=== PATIENT | male | born 1930 | race Caucasian/White ===

== ENCOUNTER → 2017-04-22 | Outpatient (CLI) | payer BC ==
[2016-05-04 13:00] VITALS: BP 60/61
[~2017-04-22] MED LIST: ASPI-482 PO; HYDR25TA9 PO; INSU100C SQ; INSU100C4 SQ; INSU100I17 SQ; INSU100I27 SQ; INSU100V13 SQ; LOSA25TA4 PO; LOVA40TA2 PO; METF500T4 PO; MULT1TAB52 PO; TRAM50TA PO
--- NOTE | 2017-04-22 13:28 | RAD ---
Indication fall 3 days previously. Head and neck injury. Pain. Noncontrast images of the head were obtained. The cervical spine was also evaluated. Images of the cervical spine were reformatted in the coronal and sagittal planes. Note is made of a similar examinations one year ago. CT head: Findings The calvarium appears unremarkable and the visualized paranasal sinuses appear normal. Ventricles and sulci within normal limits given the patient's age. There is no subdural or epidural hematoma. There is no mass or midline shift. No hemorrhage is seen. An acute intracranial finding is not apparent. CT cervical spine: Findings The lung apices are clear. The thyroid has a somewhat inhomogeneous appearance. This is likely incidental. If additional evaluation of the thyroid is warranted ultrasound could be performed. A definite significant soft tissue finding in the neck is not seen. Best demonstrated on the coronal and sagittal images is a fracture of the odontoid,, type II. The dens is displaced posteriorly relative to the remainder of the body of C2. No additional acute finding is seen involving the cervical spine. Spondylitic changes are seen. This is manifested as disc space narrowing at C3-4 and C4-5. Preliminary critical results were communicated to Ida, in the office of Dr. Padgett, at 1325 on 04/22/2017 IMPRESSION: Type II fracture of the dens. No acute finding seen in the head PQRS Compliance Statement: One or more of the following individualized dose reduction techniques were utilized for this examination: 1. Automated exposure control 2. Adjustment of the mA and/or kV according to patient size 3. Use of iterative reconstruction technique
== END | disposition home or self-care (01) ==
LOC: CT 11:20
PROVIDERS: ATTEND Internal Medicine
DX: M54.2 Cervicalgia (principal); R51 Headache; S19.9XXA Unspecified injury of neck, initial encounter; X58.XXXA Exposure to other specified factors, initial encounter; Y93.89 Activity, other specified; Y92.89 Other specified places as the place of occurrence of the external cause; Y99.8 Other external cause status
CPT/HCPCS: 70450; 72125; 82962

== ENCOUNTER 2017-04-29 13:35 | Inpatient (IN) | payer BC ==
[~2017-04-29] VITALS: Ht 175.3 cm; Wt 66.4 kg
[2017-04-29 14:10] LABS: BASO % 0 % (0-3); EOS % 1 % (0-3); HEMATOCRIT 37.3 % (39.0-53.0); HEMOGLOBIN 12.3 g/dL (13.0-17.5); LYMPH # 1.6 x10^3/uL (1.0-4.8); LYMPH % 18 % (24-48); MEAN CORPUSCULAR HEMOGLOBIN 30 pg (25-35); MEAN CORPUSCULAR HGB CONC 33 g/dL (31-37); MEAN CORPUSCULAR VOLUME 93 fL (79-100); MONO % 10 % (0-9); NEUT % 71 % (31-73); PLATELET COUNT 86 x10^3/uL (140-400); RED BLOOD COUNT 4.03 x10^6/uL (4.30-5.70); RED CELL DISTRIBUTION WIDTH 13.6 % (11.5-14.5)
[2017-04-29 14:26] LABS: BILIRUBIN,URINE NEGATIVE (NEG); GLUCOSE,URINE >=1000 mg/dL (NEG); NITRITE,URINE NEGATIVE (NEG); PH,URINE 5.5; PROTEIN,URINE NEGATIVE (NEG-TRACE); UROBILINOGEN,URINE 0.2 mg/dL (0.2 mg/dL)
[2017-04-29 14:34] LABS: ALBUMIN 3.6 g/dL (3.4-5.0); CALCIUM 8.7 mg/dL (8.5-10.1); CREATININE 1.1 mg/dL (0.7-1.3); GFR 63.5; TOTAL BILIRUBIN 0.9 mg/dL (0.2-1.0); TOTAL PROTEIN 7.1 g/dL (6.4-8.2)
[2017-04-29 14:41] LABS: BACTERIA,URINE 0 /HPF (0-FEW); RBC,URINE 0 /HPF (0-2); SQUAMOUS EPITHELIAL CELL,UR OCC /LPF; WBC,URINE OCC /HPF (0-4)
[2017-04-29 15:01] LABS: PLT ESTIMATE DECREASED (ADEQUATE)
[2017-04-29 15:44] LABS: CALCIUM 8.5 mg/dL (8.5-10.1); CREATININE 1.1 mg/dL (0.7-1.3); GFR 63.5; POTASSIUM 5.3 mmol/L (3.5-5.1)
[2017-04-29] MEDS ORDERED: cloNIDine HCL 0.1 MG TABLET PO PRN (16:00)
[2017-04-29] MEDS ORDERED: SODIUM CHLORIDE 3 % 500 ML IV ONE (16:00)
[2017-04-29] MEDS ORDERED: ACETAMINOPHEN 325 MG TABLET. PO PRN (16:00)
[2017-04-29] MEDS ORDERED: ONDANSETRON PF 4 MG/2 ML VIAL. IV PRN (16:00)
--- NOTE | 2017-04-29 16:14 | PDOC ---
Provider Note Provider Note history and physical dictated # [id number] CHARLY VILLARREAL MD Apr 29, 2017 16:14
[2017-04-29] MEDS ORDERED: OXYMETAZOLINE 0.05% NASAL SPRAY 30ML BOTTLE. NS ONE (16:15)
[2017-04-29] MEDS ORDERED: SODIUM CHLORIDE 3 % 200 ML IV ONE ×2 (16:30→17:04)
[2017-04-29] MEDS: IV NORMAL SALINE 1000ML BAG 1,000 ML IV SCH ×3 (16:30→20:35)
[2017-04-29] MEDS ORDERED: metFORMIN 500 MG TABLET PO SCH (17:00)
--- NOTE | 2017-04-29 17:01 | RAD ---
AP portable chest radiograph 04/29/2017 Clinical History: Hypertension. Two AP portable erect digital radiographs of the chest was obtained. Comparison study is dated 04/22/2017. A 8 mm calcified granuloma is seen involving the left lower lobe, unchanged. Emphysematous changes are seen involving both lungs. No acute pulmonary infiltrate is seen. No pleural effusion or pneumothorax is noted. The cardiac silhouette is normal in size. The thoracic aorta is tortuous. Atherosclerotic calcification of the thoracic aorta is seen. The osseous structures are unchanged. Impression: No acute abnormality is seen.
[2017-04-29] MEDS: ACETAMINOPHEN 500 MG TABLET PO SCH ×2 (17:17→20:36)
[2017-04-29 18:00] VITALS: BP 150/73
[2017-04-29] MEDS: CETIRIZINE HCL 10 MG TABLET. PO SCH (18:48)
[2017-04-29] MEDS: INSULIN ASPART 300 UNITS/3 ML INSULN.PEN SQ SCH (18:50)
[2017-04-29 19:00] VITALS: BP 150/73
--- NOTE | 2017-04-29 19:17 | HP ---
ADMIT DATE: 04/29/2017 HISTORY OF PRESENT ILLNESS: The patient is an 86-year-old white male who was recently dismissed from [facility] after sustaining a C2 cervical fracture involving a fracture of the odontoid with posterior displacement who was treated with cervical collar. He has a history of diabetes mellitus type 2, hypertension, hyperlipidemia. He was sent home, treated with tramadol 50 mg every 6 hours p.r.n. as well as with a walker. The patient actually was seen in the office the other day and he was to have home health and new rolling walker and other things that help him at home. However, the patient in the last 1-2 days has been more lethargic and sleeping a lot, has been eating and drinking as much and was told to go to the [facility] Emergency Room. In the Emergency Room, the serum sodium was noted to be low at 114. His BUN was 30 with creatinine 1.1 and sodium bicarbonate of 18. His blood sugar was 378. The patient is coherent and does answer questions appropriately and is alert. He said he was constipated and took a laxative last night and had a couple of bowel movements, but denies any vomiting. He has not been taking any diuretics or is not taking any type of serotonin receptor uptake inhibitors. Denies he taking any nonsteroidal anti-inflammatory drugs. The patient was therefore be admitted to the Intensive Care Unit for evaluation and treatment of his severe hyponatremia. ALLERGIES AND INTOLERANCES: INCLUDE KEFLEX, SULFA, CLINDAMYCIN, DOXYCYCLINE AND TRIMETHOPRIM. MEDICATIONS: Prior to admission include losartan 100 mg every day, lovastatin 40 mg every day, metformin 500 mg b.i.d. He stopped tramadol the day or 2 prior to admission because of the drowsiness and he also takes multiple vitamin every day and NovoLog insulin 12 units 3 times a day and he also takes Lantus insulin 14 units at bedtime, although he says he took 10 units of Lantus at bedtime last night. PAST MEDICAL HISTORY: Significant for the recent C2 cervical fracture involving the odontoid prosthesis with posterior displacement treated with a cervical collar. He also has a history of diabetes mellitus type 2, hypertension, and hyperlipidemia. He has a history of prostate cancer in 2007, treated with radiation therapy, history of diverticulosis and glaucoma. He had a cataract extraction in 2009, tonsillectomy. Last colonoscopy was in 2010. SOCIAL HISTORY: Does not drink alcohol nor he does smoke cigarettes. He is retired and , has been using a rolling walker lately. FAMILY HISTORY: Noncontributory. REVIEW OF SYSTEMS: GENERAL: There has been no fever, chills or sweats in the last 3 days. CARDIOVASCULAR: No chest pain. PULMONARY: No cough or shortness of breath. GASTROINTESTINAL: Constipated, but he took a laxative last night with results. SKIN: No rashes. NEUROLOGIC: He has been sleeping a lot for the last couple of days. ENDOCRINE: He has diabetes mellitus. Rest of systems reviewed are negative except as stated in history of present illness. PHYSICAL EXAMINATION: VITAL SIGNS: Temperature is 98 degrees, apical pulse regular at 70, respiratory rate is 14, blood pressure 153/67, oxygen saturation 98% on room air. HEENT: Gaze is conjugate. Mouth is symmetrical. NECK: Wearing a cervical collar. HEART: Reveals an S1, S2. There is no S3 or murmur. LUNGS: Clear anteriorly. ABDOMEN: Soft with no hepatosplenomegaly, masses or tenderness. EXTREMITIES: Lower extremities without edema. SKIN: No rashes. NEUROLOGIC: Revealed no facial weakness. 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 LABORATORY DATA: Serum sodium 114, potassium 5.0, chloride 81, total CO2 of 18, anion gap of 15, BUN 30, creatinine 1.1, blood sugar was 378, SGOT was 41. Other liver function tests normal, ammonia level 7, albumin was 3.6. His white count was 9.8, hemoglobin 12.3, platelet count of 86,000. He had 71 polys and 18 lymphocytes. Urinalysis showed occasional white blood cells. I do not see any EKG or chest x-ray done ____. ASSESSMENT: 1. Severe hyponatremia. Certainly this could be secondary to the syndrome of inappropriate antidiuretic hormone secretion in the setting of also ____. Denies drinking excessive water and fluid. It is possible that the tramadol could have contributed to the syndrome of inappropriate antidiuretic hormone secretion and also with pain and he was having his cervical fracture. 2. Metabolic encephalopathy secondary to the severe hyponatremia. 3. CT cervical fracture with fracture of the odontoid with posterior displacement, treated with a cervical collar. 4. Diabetes mellitus type 2. 5. Hyperglycemia. 6. Hypertension. 7. Hyperlipidemia. 8. Depression. 9. Mild metabolic acidosis. I doubt is in ketoacidosis.. PLAN: At this time is to consult ____ repeat his basic metabolic profile, statin if it is low, we are admitting him to the intensive care unit and was started him on 3% hypertonic saline solution at 40 mL an hour over 5 hours to administer 200 mL and follow up with IV normal saline at 75 mL an hour and DrIrving ____ can also check write orders for when he wants a serum sodium will be done. We will recheck his electrolytes and CBC in the morning. The serum and urine osmolality as well as random urine electrolytes will also be checked from the Emergency Room and discussed the case with the Emergency Room physician. These were ordered and pending. A stat repeat basic metabolic profile is still pending at the time of this dictation. We will continue with his insulin and decrease the dose adjust a little bit, put him on a diabetic diet checking, watch his before meals t.i.d. and bedtime. We will also order SCDs for deep vein thrombosis prophylaxis. Continue cervical collar consult Dr. Rose for followup for cervical fracture. Order some physical and occupational therapy which could be done in the bed until the serum sodium improves. Hold his losartan and lovastatin for the time being and discontinue the tramadol, which he has done and put him on scheduled, Tylenol 500 mg q.i.d. and 325 mg every 4 hours p.r.n., Put him on Senokot as for his bowels scheduled. CHARLY VILLARREAL MD DR: JESSICA/rachel JOB#: [id number] / [id number]
[2017-04-29 20:00] VITALS: BP 140/62
[2017-04-29] MEDS: SENNOSIDES/DOCUSATE 8.6/50MG TABLET. PO SCH (20:36)
[2017-04-29] MEDS: INSULIN DETEMIR 300 UNITS/3 ML INSULN.PEN. SQ SCH (20:37)
[2017-04-29 21:01] VITALS: BP 140/59
[2017-04-29] MEDS ORDERED: ASPI-630 PO (21:13)
[2017-04-29 22:00] VITALS: BP 135/68
[2017-04-29 23:03] VITALS: BP 142/55
[2017-04-30] VITALS (12 sets, daily range): BP systolic 132–178; BP diastolic 59–90
[2017-04-30 00:44] LABS: CALCIUM 8.4 mg/dL (8.5-10.1); GFR 70.8; POTASSIUM 4.3 mmol/L (3.5-5.1)
[2017-04-30 05:33] LABS: BASO % 1 % (0-3); EOS % 2 % (0-3); HEMATOCRIT 34.1 % (39.0-53.0); LYMPH # 2.2 x10^3/uL (1.0-4.8); LYMPH % 28 % (24-48); MEAN CORPUSCULAR HEMOGLOBIN 31 pg (25-35); MEAN CORPUSCULAR HGB CONC 35 g/dL (31-37); MEAN CORPUSCULAR VOLUME 89 fL (79-100); MONO % 16 % (0-9); NEUT % 53 % (31-73); RED BLOOD COUNT 3.85 x10^6/uL (4.30-5.70); RED CELL DISTRIBUTION WIDTH 13.9 % (11.5-14.5); WHITE BLOOD COUNT 7.7 x10^3/uL (4.0-11.0)
[2017-04-30] MEDS: IV NORMAL SALINE 1000ML BAG 1,000 ML IV SCH ×3 (05:50→21:52)
[2017-04-30 06:06] LABS: CALCIUM 8.2 mg/dL (8.5-10.1); CREATININE 0.9 mg/dL (0.7-1.3); POTASSIUM 4.2 mmol/L (3.5-5.1)
[2017-04-30 06:23] LABS: SODIUM, URINE 38 mmol/L (Not Estab.)
--- NOTE | 2017-04-30 07:20 | EKG ---
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 POSSIBLY ABNORMAL ECG RI6.01 Compared to ECG 04/22/2017 22:28:43 No significant changes Electronically Signed On 05-03-2017 10:37:04 CDT by Daljit Guzman
[2017-04-30] MEDS: INSULIN ASPART 300 UNITS/3 ML INSULN.PEN SQ SCH ×3 (07:30→16:25)
[2017-04-30 08:20] LABS: PLT ESTIMATE ADEQUATE (ADEQUATE)
[2017-04-30 08:21] LABS: PLATELET COUNT 88 x10^3/uL (140-400)
--- NOTE | 2017-04-30 08:47 | PDOC ---
PROGRESS NOTES Subjective Subjective feels better. alert and coherent. serum sodium better 122. received hypertonic saline and now normal saline. blood sugar okay. blood pressure high. Objective Objective Vital Signs Date Time Temp Pulse Resp B/P (MAP) Pulse Ox O2 Delivery O2 Flow Rate FiO2 04/30/17 06:00 74 20 162/76 (104) 98 Room Air 04/30/17 04:00 97.8 97.8 Intake and Output 04/30/17 07:00 Intake Total 548 ml Output Total 875 ml Balance -327 ml Intake Oral 300 ml IV Total 248 ml Output Urine Total 875 ml Physical Exam Abdomen: Soft Heart: Regular rate, Normal S1, Normal S2 Extremities: No edema General: Alert HEENT: Atraumatic, Other (cervical collar) Lungs: Clear to auscultation Neuro: Normal speech Psych/Mental Status: Mental status NL Skin: No rashes Assessment Assessment 1. Severe hyponatremia. improving. 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 Metabolic encephalopathy resolved 3. CT cervical fracture with fracture of the odontoid with posterior displacement, treated with a cervical collar. 4. Diabetes mellitus type 2. 5. Hyperglycemia. 6. Hypertension. 7. Hyperlipidemia. 8. Dehydration resolved 9. Mild metabolic acidosis resolved Plan Plan of Care continue iv normal saline lab tomorrow transfer to medical floor consult neurosurgery and nephrology PT and OT cervical collar resume metformin resume losartan tylenol qid avoid tramadol and narcotics and nsaid Comment Review of Relevant I have reviewed the following items jeannine (where applicable) has been applied. Labs Laboratory Tests Test 04/29/17 14:00 04/29/17 14:15 04/29/17 15:25 04/29/17 20:35 White Blood Count 9.0 x10^3/uL (4.0-11.0) Red Blood Count 4.03 x10^6/uL (4.30-5.70) Hemoglobin 12.3 g/dL (13.0-17.5) Hematocrit 37.3 % (39.0-53.0) Mean Corpuscular Volume 93 fL (79-100) Mean Corpuscular Hemoglobin 30 pg (25-35) Mean Corpuscular Hemoglobin Concent 33 g/dL (31-37) Red Cell Distribution Width 13.6 % (11.5-14.5) Platelet Count 86 x10^3/uL (140-400) Neutrophils (%) (Auto) 71 % (31-73) Lymphocytes (%) (Auto) 18 % (24-48) Monocytes (%) (Auto) 10 % (0-9) Eosinophils (%) (Auto) 1 % (0-3) Basophils (%) (Auto) 0 % (0-3) Neutrophils # (Auto) 6.4 x10^3uL (1.8-7.7) Lymphocytes # (Auto) 1.6 x10^3/uL (1.0-4.8) Monocytes # (Auto) 0.9 x10^3/uL (0.0-1.1) Eosinophils # (Auto) 0.1 x10^3/uL (0.0-0.7) Basophils # (Auto) 0.0 x10^3/uL (0.0-0.2) Platelet Estimate Decreased (ADEQUATE) Giant Platelets Present Sodium Level 114 mmol/L (136-145) 115 mmol/L (136-145) Potassium Level 5.0 mmol/L (3.5-5.1) 5.3 mmol/L (3.5-5.1) Chloride Level 81 mmol/L (98-107) 82 mmol/L (98-107) Carbon Dioxide Level 18 mmol/L (21-32) 19 mmol/L (21-32) Anion Gap 15 (6-14) 14 (6-14) Blood Urea Nitrogen 30 mg/dL (8-26) 29 mg/dL (8-26) Creatinine 1.1 mg/dL (0.7-1.3) 1.1 mg/dL (0.7-1.3) Estimated GFR (Cockcroft-Gault) 63.5 63.5 BUN/Creatinine Ratio 27 (6-20) Glucose Level 378 mg/dL (70-99) 352 mg/dL (70-99) Calcium Level 8.7 mg/dL (8.5-10.1) 8.5 mg/dL (8.5-10.1) Total Bilirubin 0.9 mg/dL (0.2-1.0) Aspartate Amino Transf (AST/SGOT) 41 U/L (15-37) Alanine Aminotransferase (ALT/SGPT) 33 U/L (16-63) Alkaline Phosphatase 108 U/L (46-116) Ammonia 7 mcmol/L (11-34) Total Protein 7.1 g/dL (6.4-8.2) Albumin 3.6 g/dL (3.4-5.0) Albumin/Globulin Ratio 1.0 (1.0-1.7) Urine Color Yellow Urine Clarity Cloudy Urine pH 5.5 Urine Specific [place] >=1.030 Urine Protein Negative mg/dL (NEG-TRACE) Urine Glucose (UA) >=1000 mg/dL (NEG) Urine Ketones (Stick) 40 mg/dL (NEG) Urine Blood Negative (NEG) Urine Nitrite Negative (NEG) Urine Bilirubin Negative (NEG) Urine Urobilinogen Dipstick 0.2 mg/dL (0.2 mg/dL) Urine Leukocyte Esterase Negative (NEG) Urine RBC 0 /HPF (0-2) Urine WBC Occ /HPF (0-4) Urine Squamous Epithelial Cells Occ /LPF Urine Bacteria 0 /HPF (0-FEW) Urine Hyaline Casts Occasional /HPF Urine Mucus Slight /LPF Urine Sodium 38 mmol/L (Not Estab.) Urine Potassium 40.1 mmol/L (Not Estab.) Urine Chloride <20 mmol/L (Not Estab.) Serum Osmolality 266 mOsm/Kg (279-304) Glucose (Fingerstick) 274 mg/dL (70-99) Test 04/30/17 00:05 04/30/17 05:00 Sodium Level 121 mmol/L (136-145) 122 mmol/L (136-145) Potassium Level 4.3 mmol/L (3.5-5.1) 4.2 mmol/L (3.5-5.1) Chloride Level 90 mmol/L (98-107) 91 mmol/L (98-107) Carbon Dioxide Level 22 mmol/L (21-32) 22 mmol/L (21-32) Anion Gap 9 (6-14) 9 (6-14) Blood Urea Nitrogen 27 mg/dL (8-26) 23 mg/dL (8-26) Creatinine 1.0 mg/dL (0.7-1.3) 0.9 mg/dL (0.7-1.3) Estimated GFR (Cockcroft-Gault) 70.8 80.0 Glucose Level 195 mg/dL (70-99) 131 mg/dL (70-99) Calcium Level 8.4 mg/dL (8.5-10.1) 8.2 mg/dL (8.5-10.1) White Blood Count 7.7 x10^3/uL (4.0-11.0) Red Blood Count 3.85 x10^6/uL (4.30-5.70) Hemoglobin 12.0 g/dL (13.0-17.5) Hematocrit 34.1 % (39.0-53.0) Mean Corpuscular Volume 89 fL (79-100) Mean Corpuscular Hemoglobin 31 pg (25-35) Mean Corpuscular Hemoglobin Concent 35 g/dL (31-37) Red Cell Distribution Width 13.9 % (11.5-14.5) Platelet Count 88 x10^3/uL (140-400) Neutrophils (%) (Auto) 53 % (31-73) Lymphocytes (%) (Auto) 28 % (24-48) Monocytes (%) (Auto) 16 % (0-9) Eosinophils (%) (Auto) 2 % (0-3) Basophils (%) (Auto) 1 % (0-3) Neutrophils # (Auto) 4.1 x10^3uL (1.8-7.7) Lymphocytes # (Auto) 2.2 x10^3/uL (1.0-4.8) Monocytes # (Auto) 1.2 x10^3/uL (0.0-1.1) Eosinophils # (Auto) 0.2 x10^3/uL (0.0-0.7) Basophils # (Auto) 0.0 x10^3/uL (0.0-0.2) Platelet Estimate Adequate (ADEQUATE) Large Platelets Many Giant Platelets Many Laboratory Tests Test 04/29/17 14:00 04/29/17 14:15 04/29/17 15:25 04/29/17 20:35 White Blood Count 9.0 x10^3/uL (4.0-11.0) Red Blood Count 4.03 x10^6/uL (4.30-5.70) Hemoglobin 12.3 g/dL (13.0-17.5) Hematocrit 37.3 % (39.0-53.0) Mean Corpuscular Volume 93 fL (79-100) Mean Corpuscular Hemoglobin 30 pg (25-35) Mean Corpuscular Hemoglobin Concent 33 g/dL (31-37) Red Cell Distribution Width 13.6 % (11.5-14.5) Platelet Count 86 x10^3/uL (140-400) Neutrophils (%) (Auto) 71 % (31-73) Lymphocytes (%) (Auto) 18 % (24-48) Monocytes (%) (Auto) 10 % (0-9) Eosinophils (%) (Auto) 1 % (0-3) Basophils (%) (Auto) 0 % (0-3) Neutrophils # (Auto) 6.4 x10^3uL (1.8-7.7) Lymphocytes # (Auto) 1.6 x10^3/uL (1.0-4.8) Monocytes # (Auto) 0.9 x10^3/uL (0.0-1.1) Eosinophils # (Auto) 0.1 x10^3/uL (0.0-0.7) Basophils # (Auto) 0.0 x10^3/uL (0.0-0.2) Platelet Estimate Decreased (ADEQUATE) Giant Platelets Present Sodium Level 114 mmol/L (136-145) 115 mmol/L (136-145) Potassium Level 5.0 mmol/L (3.5-5.1) 5.3 mmol/L (3.5-5.1) Chloride Level 81 mmol/L (98-107) 82 mmol/L (98-107) Carbon Dioxide Level 18 mmol/L (21-32) 19 mmol/L (21-32) Anion Gap 15 (6-14) 14 (6-14) Blood Urea Nitrogen 30 mg/dL (8-26) 29 mg/dL (8-26) Creatinine 1.1 mg/dL (0.7-1.3) 1.1 mg/dL (0.7-1.3) Estimated GFR (Cockcroft-Gault) 63.5 63.5 BUN/Creatinine Ratio 27 (6-20) Glucose Level 378 mg/dL (70-99) 352 mg/dL (70-99) Calcium Level 8.7 mg/dL (8.5-10.1) 8.5 mg/dL (8.5-10.1) Total Bilirubin 0.9 mg/dL (0.2-1.0) Aspartate Amino Transf (AST/SGOT) 41 U/L (15-37) Alanine Aminotransferase (ALT/SGPT) 33 U/L (16-63) Alkaline Phosphatase 108 U/L (46-116) Ammonia 7 mcmol/L (11-34) Total Protein 7.1 g/dL (6.4-8.2) Albumin 3.6 g/dL (3.4-5.0) Albumin/Globulin Ratio 1.0 (1.0-1.7) Urine Color Yellow Urine Clarity Cloudy Urine pH 5.5 Urine Specific [place] >=1.030 Urine Protein Negative mg/dL (NEG-TRACE) Urine Glucose (UA) >=1000 mg/dL (NEG) Urine Ketones (Stick) 40 mg/dL (NEG) Urine Blood Negative (NEG) Urine Nitrite Negative (NEG) Urine Bilirubin Negative (NEG) Urine Urobilinogen Dipstick 0.2 mg/dL (0.2 mg/dL) Urine Leukocyte Esterase Negative (NEG) Urine RBC 0 /HPF (0-2) Urine WBC Occ /HPF (0-4) Urine Squamous Epithelial Cells Occ /LPF Urine Bacteria 0 /HPF (0-FEW) Urine Hyaline Casts Occasional /HPF Urine Mucus Slight /LPF Urine Sodium 38 mmol/L (Not Estab.) Urine Potassium 40.1 mmol/L (Not Estab.) Urine Chloride <20 mmol/L (Not Estab.) Serum Osmolality 266 mOsm/Kg (279-304) Glucose (Fingerstick) 274 mg/dL (70-99) Test 04/30/17 00:05 04/30/17 05:00 Sodium Level 121 mmol/L (136-145) 122 mmol/L (136-145) Potassium Level 4.3 mmol/L (3.5-5.1) 4.2 mmol/L (3.5-5.1) Chloride Level 90 mmol/L (98-107) 91 mmol/L (98-107) Carbon Dioxide Level 22 mmol/L (21-32) 22 mmol/L (21-32) Anion Gap 9 (6-14) 9 (6-14) Blood Urea Nitrogen 27 mg/dL (8-26) 23 mg/dL (8-26) Creatinine 1.0 mg/dL (0.7-1.3) 0.9 mg/dL (0.7-1.3) Estimated GFR (Cockcroft-Gault) 70.8 80.0 Glucose Level 195 mg/dL (70-99) 131 mg/dL (70-99) Calcium Level 8.4 mg/dL (8.5-10.1) 8.2 mg/dL (8.5-10.1) White Blood Count 7.7 x10^3/uL (4.0-11.0) Red Blood Count 3.85 x10^6/uL (4.30-5.70) Hemoglobin 12.0 g/dL (13.0-17.5) Hematocrit 34.1 % (39.0-53.0) Mean Corpuscular Volume 89 fL (79-100) Mean Corpuscular Hemoglobin 31 pg (25-35) Mean Corpuscular Hemoglobin Concent 35 g/dL (31-37) Red Cell Distribution Width 13.9 % (11.5-14.5) Platelet Count 88 x10^3/uL (140-400) Neutrophils (%) (Auto) 53 % (31-73) Lymphocytes (%) (Auto) 28 % (24-48) Monocytes (%) (Auto) 16 % (0-9) Eosinophils (%) (Auto) 2 % (0-3) Basophils (%) (Auto) 1 % (0-3) Neutrophils # (Auto) 4.1 x10^3uL (1.8-7.7) Lymphocytes # (Auto) 2.2 x10^3/uL (1.0-4.8) Monocytes # (Auto) 1.2 x10^3/uL (0.0-1.1) Eosinophils # (Auto) 0.2 x10^3/uL (0.0-0.7) Basophils # (Auto) 0.0 x10^3/uL (0.0-0.2) Platelet Estimate Adequate (ADEQUATE) Large Platelets Many Giant Platelets Many Medications Current Medications Ondansetron HCl (Zofran) 4 mg PRN Q6HRS PRN IV NAUSEA/VOMITING; Start 04/29/17 at 16:00 Acetaminophen (Tylenol) 500 mg QID PO Last administered on 04/29/17t 20:36; Start 04/29/17 at 17:00 Acetaminophen (Tylenol) 325 mg Q4HRS PRN PO MILD PAIN / TEMP; Start 04/29/17 at 16:00 Insulin Aspart (NovoLOG) 10 units TIDAC SQ Last administered on 04/29/17 18:50 ; Start 04/29/17 at 16:30 Insulin Detemir (Levemir) 10 units QHS SQ Last administered on 04/29/17 20:37 ; Start 04/29/17 at 21:00 Sodium Chloride 200 ml @ 40 mls/hr 1X ONCE IV Last administered on 04/29/17 16:48; Start 04/29/17 at 16:00; Stop 04/29/17 at 17:04; Status DC Sodium Chloride 1,000 ml @ 75 mls/hr [id number] IV Last administered on 20:35; Start 04/29/17 at 21:00 Metformin HCl (Glucophage) 500 mg BIDWMEALS PO ; Start 04/29/17 at 17:00; Stop 04/29/17 at 17:00; Status DC Senna/Docusate Sodium (Senna Plus) 2 tab QHS PO Last administered on 04/29/17 20:36; Start 04/29/17 at 21:00 Clonidine HCl (Catapres) 0.1 mg Q6HRS PRN PO HYPERTENSION, SEE COMMENTS; Start 04/29/17 at 16:00 Oxymetazoline HCl (Afrin) 2 spray 1X ONCE NS Last administered on 04/29/17 16 :31; Start 04/29/17 at 16:15; Stop 04/29/17 at 16:16; Status DC Sodium Chloride 200 ml @ 40 mls/hr 1X ONCE IV ; Start 04/29/17 at 16:30; Stop 04/29/17 at 21:29; Status UNV Sodium Chloride 1,000 ml @ 75 mls/hr [id number] IV ; Start 04/29/17 at 16:30 Cetirizine HCl (ZyrTEC) 10 mg DAILY PO Last administered on 04/29/17 18:48; Start 04/29/17 at 17:00 Sodium Chloride 200 ml @ 40 mls/hr 1X ONCE IV Last administered on 04/29/17 17:08; Start 04/29/17 at 17:04; Stop 04/29/17 at 20:59; Status DC Active Scripts Active Hydrochlorothiazide Tablet (Hydrochlorothiazide) 25 Mg Tablet 25 Mg PO DAILY 30 Days Tramadol Hcl 50 Mg Tablet 50 Mg PO PRN Q6HRS PRN 30 Days Novolog Flexpen (Insulin Aspart) 100 Unit/1 Ml Insuln.pen 12 Units SQ TIDAC 30 Days Levemir Flextouch (Insulin Detemir) 100 Unit/1 Ml Insuln.pen 14 Units SQ QHS 30 Days Reported Multivitamins (Multivitamin) 1 Each Tablet 1 Tab PO DAILY Losartan Potassium 25 Mg Tablet 100 Mg PO DAILY Lovastatin 40 Mg Tablet 1 Tab PO HS Metformin Hcl 500 Mg Tablet 1 Tab PO BID Vitals/I & O Vital Sign - Last 24 Hours 04/29/17 04/29/17 04/29/17 04/29/17 13:46 14:00 15:00 15:30 Temp 98.0 98.0 Pulse 72 74 70 74 Resp 20 16 14 16 B/P (MAP) 174/74 (107) 131/63 (85) 153/67 (95) 155/76 (102) Pulse Ox 98 97 98 98 O2 Delivery Room Air Room Air Room Air Room Air 04/29/17 04/29/17 04/29/17 04/29/17 16:00 17:00 18:00 19:00 Temp 98.2 98.0 98.2 98.0 Pulse 78 74 87 79 Resp 19 14 20 16 B/P (MAP) 184/79 (114) 201/77 (118) 150/73 (98) 150/73 (98) Pulse Ox 96 98 98 O2 Delivery Room Air Room Air Room Air Room Air 04/29/17 04/29/17 04/29/17 04/29/17 20:00 21:01 22:00 23:03 Pulse 78 74 68 70 Resp 16 18 16 18 B/P (MAP) 140/62 (88) 140/59 (86) 135/68 (90) 142/55 (84) Pulse Ox 97 98 98 97 04/30/17 04/30/17 04/30/17 04/30/17 00:00 01:00 02:00 03:00 Temp 97.8 97.8 Pulse 72 67 72 64 Resp 22 23 14 12 B/P (MAP) 152/77 (102) 178/79 (112) 177/90 (119) 163/81 (108) Pulse Ox 98 99 97 98 O2 Delivery Room Air Room Air Room Air Room Air 04/30/17 04/30/17 04/30/17 04:00 05:00 06:00 Temp 97.8 97.8 Pulse 65 65 74 Resp 18 13 20 B/P (MAP) 158/73 (101) 155/70 (98) 162/76 (104) Pulse Ox 98 99 98 O2 Delivery Room Air Room Air Room Air Intake and Output 04/29/17 04/29/17 04/30/17 15:00 23:00 07:00 Intake Total 60 ml 488 ml Output Total 200 ml 675 ml Balance -140 ml -187 ml CHARLY VILLARREAL MD Apr 30, 2017 08:47
[2017-04-30] MEDS ORDERED: LOSARTAN POTASSIUM 50 MG TABLET. PO SCH ×2 (09:00)
[2017-04-30] MEDS: ACETAMINOPHEN 500 MG TABLET PO SCH ×4 (09:27→21:27)
[2017-04-30] MEDS: CETIRIZINE HCL 10 MG TABLET. PO SCH (09:27)
[2017-04-30] MEDS: metFORMIN 500 MG TABLET PO SCH ×2 (09:27→16:31)
[2017-04-30] MEDS: LOSARTAN POTASSIUM 50 MG TABLET. PO SCH (09:29)
--- NOTE | 2017-04-30 12:05 | ED.ADGEN ---
Past Medical History Past Medical History: Diabetes-Type II, High Cholesterol, Hypertension Additional Past Medical Histor: C-@ fx Past Surgical History: Tonsillectomy, Other Additional Past Surgical Histo: Torn ACL Alcohol Use: Rarely Drug Use: None Adult General Chief Complaint Chief Complaint: OTHER COMPLAINTS HPI HPI Patient is a 86 year old recent discharge from the hospitalist C2 fracture, managed nonoperatively, who presents with generalized weakness and fatigue increased somnolence for the past several days. She was recently discontinued tramadol as this was thought to be a possible contributing factor. Patient reports no improvement. He denies fever, cough, sore throat, chest pain palpitations, urinary frequency urgency or decreased oral intake. Reports sinus congestion, postnasal drip. Patient is Dr. Royer De La Torre. Review of Systems Review of Systems ROS as per HPI. Allergies Allergies Allergies Coded Allergies Type Severity Reaction Last Updated Verified Cephalosporins Allergy Intermediate 05/04/16 Yes Sulfa (Sulfonamide Antibiotics) Allergy Intermediate 05/04/16 Yes cephalexin Allergy Intermediate 04/22/17 Yes clindamycin Allergy Intermediate 05/04/16 Yes doxycycline Allergy Intermediate 05/04/16 Yes sulfamethoxazole Allergy Intermediate 04/22/17 Yes trimethoprim Allergy Intermediate 04/22/17 Yes Physical Exam Physical Exam Constitutional: Well developed, well nourished, no acute distress, non-toxic appearance. [] HENT: Normocephalic, atraumatic, bilateral external ears normal, oropharynx moist, no oral exudates, nose rhinorrhea with clear mucus. Eyes: PERRLA, EOMI, conjunctiva normal, no discharge. [] Neck: Rigid cervical collar in place. Cardiovascular:Heart rate regular rhythm, no murmur [] Lungs & Thorax: Bilateral breath sounds clear to auscultation [] Abdomen: Bowel sounds normal, soft, no tenderness, no masses, no pulsatile masses. [] Skin: Warm, dry, no erythema, no rash. [] Back: No tenderness, no CVA tenderness. [] Extremities: No tenderness, no cyanosis, no clubbing, ROM intact, no edema. [] Neurologic: Alert and oriented X 3, normal motor function, normal sensory function, no focal deficits noted. [] Psychologic: Affect normal, judgement normal, mood normal. [] Current Patient Data Vital Signs Vital Signs Date Time Temp Pulse Resp B/P (MAP) Pulse Ox O2 Delivery O2 Flow Rate FiO2 6/15/17 15:00 70 14 153/67 (95) 98 Room Air 04/29/17 13:46 98.0 98.0 Lab Values Laboratory Tests Test 04/29/17 14:00 04/29/17 14:15 White Blood Count 9.0 x10^3/uL (4.0-11.0) Red Blood Count 4.03 x10^6/uL (4.30-5.70) L Hemoglobin 12.3 g/dL (13.0-17.5) L Hematocrit 37.3 % (39.0-53.0) L Mean Corpuscular Volume 93 fL (79-100) Mean Corpuscular Hemoglobin 30 pg (25-35) Mean Corpuscular Hemoglobin Concent 33 g/dL (31-37) Red Cell Distribution Width 13.6 % (11.5-14.5) Platelet Count 86 x10^3/uL (140-400) L Neutrophils (%) (Auto) 71 % (31-73) Lymphocytes (%) (Auto) 18 % (24-48) L Monocytes (%) (Auto) 10 % (0-9) H Eosinophils (%) (Auto) 1 % (0-3) Basophils (%) (Auto) 0 % (0-3) Neutrophils # (Auto) 6.4 x10^3uL (1.8-7.7) Lymphocytes # (Auto) 1.6 x10^3/uL (1.0-4.8) Monocytes # (Auto) 0.9 x10^3/uL (0.0-1.1) Eosinophils # (Auto) 0.1 x10^3/uL (0.0-0.7) Basophils # (Auto) 0.0 x10^3/uL (0.0-0.2) Platelet Estimate Decreased (ADEQUATE) Giant Platelets Present Sodium Level 114 mmol/L (136-145) *L Potassium Level 5.0 mmol/L (3.5-5.1) Chloride Level 81 mmol/L (98-107) L Carbon Dioxide Level 18 mmol/L (21-32) L Anion Gap 15 (6-14) H Blood Urea Nitrogen 30 mg/dL (8-26) H Creatinine 1.1 mg/dL (0.7-1.3) Estimated GFR (Cockcroft-Gault) 63.5 BUN/Creatinine Ratio 27 (6-20) H Glucose Level 378 mg/dL (70-99) H Calcium Level 8.7 mg/dL (8.5-10.1) Total Bilirubin 0.9 mg/dL (0.2-1.0) Aspartate Amino Transferase (AST) 41 U/L (15-37) H Alanine Aminotransferase (ALT) 33 U/L (16-63) Alkaline Phosphatase 108 U/L (46-116) Ammonia 7 mcmol/L (11-34) L Total Protein 7.1 g/dL (6.4-8.2) Albumin 3.6 g/dL (3.4-5.0) Albumin/Globulin Ratio 1.0 (1.0-1.7) Urine Color Yellow Urine Clarity Cloudy Urine pH 5.5 Urine Specific [place] >=1.030 Urine Protein Negative mg/dL (NEG-TRACE) Urine Glucose (UA) >=1000 mg/dL (NEG) Urine Ketones (Stick) 40 mg/dL (NEG) Urine Blood Negative (NEG) Urine Nitrite Negative (NEG) Urine Bilirubin Negative (NEG) Urine Urobilinogen Dipstick 0.2 mg/dL (0.2 mg/dL) Urine Leukocyte Esterase Negative (NEG) Urine RBC 0 /HPF (0-2) Urine WBC Occ /HPF (0-4) Urine Squamous Epithelial Cells Occ /LPF Urine Bacteria 0 /HPF (0-FEW) Urine Hyaline Casts Occasional /HPF Urine Mucus Slight /LPF Urine Osmolality 701 mOsmol/kg (.) Urine Sodium 38 mmol/L (Not Estab.) Urine Potassium 40.1 mmol/L (Not Estab.) Urine Chloride <20 mmol/L (Not Estab.) Laboratory Tests 04/29/17 14:00 Laboratory Tests 04/29/17 14:00 EKG EKG [] Radiology/Procedures Radiology/Procedures [] Course & Med Decision Making Course & Med Decision Making Pertinent Labs and Imaging studies reviewed. (See chart for details) [Patient with significant hyponatremia, etiology unclear. Case reviewed with Dr. De La Torre and Dr. Lafleur. Recommendations are for hypertonic saline to be given in the emergency department at 40 mL per hour for a total of 200 mL's over 5 hours along with hydration with normal saline at 75 ML's per hour with repeat sodium level in 6 hours. Courtesy bridge orders provided.] Meena Disclaimer Dragon Disclaimer This electronic medical record was generated, in whole or in part, using a voice recognition dictation system. MAO MCDONNELL DO Apr 30, 2017 12:05
--- NOTE | 2017-04-30 12:33 | PDOC2 ---
CONSULT Date of Consult Date of Consult DATE: 04/30/17 TIME: 12:27 Reason for Consult Reason for Consult: LOW NA Referring Physician Referring Physician: PHIL Identification/Chief Complaint Chief Complaint CONFUSION Source Source: Chart review History of Present Illness Reason for Visit: THIS IS AN 86 YR OLD ADMITTED WITH LETHARGY AND CONFUSION. HAS BEEN SLEEPING A LOT. LABS SHOWED A NA OF 114. NO NEW MEDS. RECENTLY DISCHARGED AFTER INPT STAY FOR C2 FX. HAS BEEN ON HCTZ Past Medical History Cardiovascular: HTN, Hyperlipidemia ENT: Other (GLAUCOMA) Renal/: Benign prostatic enlarg. Endocrine: Diabetes Past Surgical History Past Surgical History C2 FX Past Surgical History: Tonsillectomy Family History Family History: No Significant Social History No ALCOHOL: none Lives: with Family Current Medications Current Medications Current Medications Ondansetron HCl (Zofran) 4 mg PRN Q6HRS PRN IV NAUSEA/VOMITING; Start 04/29/17 at 16:00 Acetaminophen (Tylenol) 500 mg QID PO Last administered on 04/30/17 12:20; Start 04/29/17 at 17:00 Acetaminophen (Tylenol) 325 mg Q4HRS PRN PO MILD PAIN / TEMP; Start 04/29/17 at 16:00 Insulin Aspart (NovoLOG) 10 units TIDAC SQ Last administered on 04/30/17 12:25 ; Start 04/29/17 at 16:30 Insulin Detemir (Levemir) 10 units QHS SQ Last administered on 04/29/17 20:37 ; Start 04/29/17 at 21:00 Sodium Chloride 200 ml @ 40 mls/hr 1X ONCE IV Last administered on 04/29/17 16:48; Start 04/29/17 at 16:00; Stop 04/29/17 at 17:04; Status DC Sodium Chloride 1,000 ml @ 75 mls/hr [id number] IV Last administered on 09:30; Start 04/29/17 at 21:00 Metformin HCl (Glucophage) 500 mg BIDWMEALS PO ; Start 04/29/17 at 17:00; Stop 04/29/17 at 17:00; Status DC Senna/Docusate Sodium (Senna Plus) 2 tab QHS PO Last administered on 04/29/17 20:36; Start 04/29/17 at 21:00 Clonidine HCl (Catapres) 0.1 mg Q6HRS PRN PO HYPERTENSION, SEE COMMENTS; Start 04/29/17 at 16:00 Oxymetazoline HCl (Afrin) 2 spray 1X ONCE NS Last administered on 04/29/17 16 :31; Start 04/29/17 at 16:15; Stop 04/29/17 at 16:16; Status DC Sodium Chloride 200 ml @ 40 mls/hr 1X ONCE IV ; Start 04/29/17 at 16:30; Stop 04/29/17 at 21:29; Status UNV Sodium Chloride 1,000 ml @ 75 mls/hr [id number] IV ; Start 04/29/17 at 16:30; Stop 04/30/17 at 08:49; Status DC Cetirizine HCl (ZyrTEC) 10 mg DAILY PO Last administered on 04/30/17 09:27; Start 04/29/17 at 17:00 Sodium Chloride 200 ml @ 40 mls/hr 1X ONCE IV Last administered on 04/29/17 17:08; Start 04/29/17 at 17:04; Stop 04/29/17 at 20:59; Status DC Metformin HCl (Glucophage) 500 mg BIDWMEALS PO Last administered on 04/30/17 09:27; Start 04/30/17 at 09:00 Losartan Potassium (Cozaar) 100 mg DAILY PO ; Start 04/30/17 at 09:00; Stop at 09:00; Status DC Losartan Potassium (Cozaar) 100 mg DAILY PO ; Start 04/30/17 at 09:00; Status UNV Losartan Potassium (Cozaar) 100 mg DAILY PO Last administered on 04/30/17 09: 29; Start 04/30/17 at 09:00 Active Scripts Active Hydrochlorothiazide Tablet (Hydrochlorothiazide) 25 Mg Tablet 25 Mg PO DAILY 30 Days Tramadol Hcl 50 Mg Tablet 50 Mg PO PRN Q6HRS PRN 30 Days Novolog Flexpen (Insulin Aspart) 100 Unit/1 Ml Insuln.pen 12 Units SQ TIDAC 30 Days Levemir Flextouch (Insulin Detemir) 100 Unit/1 Ml Insuln.pen 14 Units SQ QHS 30 Days Reported Multivitamins (Multivitamin) 1 Each Tablet 1 Tab PO DAILY Losartan Potassium 25 Mg Tablet 100 Mg PO DAILY Lovastatin 40 Mg Tablet 1 Tab PO HS Metformin Hcl 500 Mg Tablet 1 Tab PO BID Allergies Allergies: Coded Allergies: Cephalosporins (Verified Allergy, Intermediate, 05/04/16) Sulfa (Sulfonamide Antibiotics) (Verified Allergy, Intermediate, 05/04/16) cephalexin (Verified Allergy, Intermediate, 04/22/17) clindamycin (Verified Allergy, Intermediate, 05/04/16) doxycycline (Verified Allergy, Intermediate, 05/04/16) sulfamethoxazole (Verified Allergy, Intermediate, 04/22/17) trimethoprim (Verified Allergy, Intermediate, 04/22/17) ROS Review of System UNABLE TO OBTAIN Physical Exam General: Cooperative HEENT: Atraumatic, PERRLA Lungs: Clear to auscultation, Normal air movement Heart: Regular rate, Normal S2 Abdomen: Normal bowel sounds, Soft, No tenderness Skin: No rashes Neuro: Other (CONFUSED) Psych/Mental Status: Other (CONFUSED) MUSCULOSKELETAL: No deformity, No swelling Vitals VITALS Vital Signs Date Time Temp Pulse Resp B/P (MAP) Pulse Ox O2 Delivery O2 Flow Rate FiO2 04/30/17 11:00 98.1 68 18 139/61 (87) 98 Room Air 98.1 Labs Labs Laboratory Tests Test 04/29/17 14:00 04/29/17 14:15 04/29/17 15:25 04/29/17 20:35 White Blood Count 9.0 x10^3/uL (4.0-11.0) Red Blood Count 4.03 x10^6/uL (4.30-5.70) Hemoglobin 12.3 g/dL (13.0-17.5) Hematocrit 37.3 % (39.0-53.0) Mean Corpuscular Volume 93 fL (79-100) Mean Corpuscular Hemoglobin 30 pg (25-35) Mean Corpuscular Hemoglobin Concent 33 g/dL (31-37) Red Cell Distribution Width 13.6 % (11.5-14.5) Platelet Count 86 x10^3/uL (140-400) Neutrophils (%) (Auto) 71 % (31-73) Lymphocytes (%) (Auto) 18 % (24-48) Monocytes (%) (Auto) 10 % (0-9) Eosinophils (%) (Auto) 1 % (0-3) Basophils (%) (Auto) 0 % (0-3) Neutrophils # (Auto) 6.4 x10^3uL (1.8-7.7) Lymphocytes # (Auto) 1.6 x10^3/uL (1.0-4.8) Monocytes # (Auto) 0.9 x10^3/uL (0.0-1.1) Eosinophils # (Auto) 0.1 x10^3/uL (0.0-0.7) Basophils # (Auto) 0.0 x10^3/uL (0.0-0.2) Platelet Estimate Decreased (ADEQUATE) Giant Platelets Present Sodium Level 114 mmol/L (136-145) 115 mmol/L (136-145) Potassium Level 5.0 mmol/L (3.5-5.1) 5.3 mmol/L (3.5-5.1) Chloride Level 81 mmol/L (98-107) 82 mmol/L (98-107) Carbon Dioxide Level 18 mmol/L (21-32) 19 mmol/L (21-32) Anion Gap 15 (6-14) 14 (6-14) Blood Urea Nitrogen 30 mg/dL (8-26) 29 mg/dL (8-26) Creatinine 1.1 mg/dL (0.7-1.3) 1.1 mg/dL (0.7-1.3) Estimated GFR (Cockcroft-Gault) 63.5 63.5 BUN/Creatinine Ratio 27 (6-20) Glucose Level 378 mg/dL (70-99) 352 mg/dL (70-99) Calcium Level 8.7 mg/dL (8.5-10.1) 8.5 mg/dL (8.5-10.1) Total Bilirubin 0.9 mg/dL (0.2-1.0) Aspartate Amino Transf (AST/SGOT) 41 U/L (15-37) Alanine Aminotransferase (ALT/SGPT) 33 U/L (16-63) Alkaline Phosphatase 108 U/L (46-116) Ammonia 7 mcmol/L (11-34) Total Protein 7.1 g/dL (6.4-8.2) Albumin 3.6 g/dL (3.4-5.0) Albumin/Globulin Ratio 1.0 (1.0-1.7) Urine Color Yellow Urine Clarity Cloudy Urine pH 5.5 Urine Specific [place] >=1.030 Urine Protein Negative mg/dL (NEG-TRACE) Urine Glucose (UA) >=1000 mg/dL (NEG) Urine Ketones (Stick) 40 mg/dL (NEG) Urine Blood Negative (NEG) Urine Nitrite Negative (NEG) Urine Bilirubin Negative (NEG) Urine Urobilinogen Dipstick 0.2 mg/dL (0.2 mg/dL) Urine Leukocyte Esterase Negative (NEG) Urine RBC 0 /HPF (0-2) Urine WBC Occ /HPF (0-4) Urine Squamous Epithelial Cells Occ /LPF Urine Bacteria 0 /HPF (0-FEW) Urine Hyaline Casts Occasional /HPF Urine Mucus Slight /LPF Urine Osmolality 701 mOsmol/kg (.) Urine Sodium 38 mmol/L (Not Estab.) Urine Potassium 40.1 mmol/L (Not Estab.) Urine Chloride <20 mmol/L (Not Estab.) Serum Osmolality 266 mOsm/Kg (279-304) Glucose (Fingerstick) 274 mg/dL (70-99) Test 04/30/17 00:05 04/30/17 05:00 04/30/17 09:19 Sodium Level 121 mmol/L (136-145) 122 mmol/L (136-145) Potassium Level 4.3 mmol/L (3.5-5.1) 4.2 mmol/L (3.5-5.1) Chloride Level 90 mmol/L (98-107) 91 mmol/L (98-107) Carbon Dioxide Level 22 mmol/L (21-32) 22 mmol/L (21-32) Anion Gap 9 (6-14) 9 (6-14) Blood Urea Nitrogen 27 mg/dL (8-26) 23 mg/dL (8-26) Creatinine 1.0 mg/dL (0.7-1.3) 0.9 mg/dL (0.7-1.3) Estimated GFR (Cockcroft-Gault) 70.8 80.0 Glucose Level 195 mg/dL (70-99) 131 mg/dL (70-99) Calcium Level 8.4 mg/dL (8.5-10.1) 8.2 mg/dL (8.5-10.1) White Blood Count 7.7 x10^3/uL (4.0-11.0) Red Blood Count 3.85 x10^6/uL (4.30-5.70) Hemoglobin 12.0 g/dL (13.0-17.5) Hematocrit 34.1 % (39.0-53.0) Mean Corpuscular Volume 89 fL (79-100) Mean Corpuscular Hemoglobin 31 pg (25-35) Mean Corpuscular Hemoglobin Concent 35 g/dL (31-37) Red Cell Distribution Width 13.9 % (11.5-14.5) Platelet Count 88 x10^3/uL (140-400) Neutrophils (%) (Auto) 53 % (31-73) Lymphocytes (%) (Auto) 28 % (24-48) Monocytes (%) (Auto) 16 % (0-9) Eosinophils (%) (Auto) 2 % (0-3) Basophils (%) (Auto) 1 % (0-3) Neutrophils # (Auto) 4.1 x10^3uL (1.8-7.7) Lymphocytes # (Auto) 2.2 x10^3/uL (1.0-4.8) Monocytes # (Auto) 1.2 x10^3/uL (0.0-1.1) Eosinophils # (Auto) 0.2 x10^3/uL (0.0-0.7) Basophils # (Auto) 0.0 x10^3/uL (0.0-0.2) Platelet Estimate Adequate (ADEQUATE) Large Platelets Many Giant Platelets Many Glucose (Fingerstick) 126 mg/dL (70-99) Laboratory Tests Test 04/29/17 14:00 04/29/17 14:15 04/29/17 15:25 04/29/17 20:35 White Blood Count 9.0 x10^3/uL (4.0-11.0) Red Blood Count 4.03 x10^6/uL (4.30-5.70) Hemoglobin 12.3 g/dL (13.0-17.5) Hematocrit 37.3 % (39.0-53.0) Mean Corpuscular Volume 93 fL (79-100) Mean Corpuscular Hemoglobin 30 pg (25-35) Mean Corpuscular Hemoglobin Concent 33 g/dL (31-37) Red Cell Distribution Width 13.6 % (11.5-14.5) Platelet Count 86 x10^3/uL (140-400) Neutrophils (%) (Auto) 71 % (31-73) Lymphocytes (%) (Auto) 18 % (24-48) Monocytes (%) (Auto) 10 % (0-9) Eosinophils (%) (Auto) 1 % (0-3) Basophils (%) (Auto) 0 % (0-3) Neutrophils # (Auto) 6.4 x10^3uL (1.8-7.7) Lymphocytes # (Auto) 1.6 x10^3/uL (1.0-4.8) Monocytes # (Auto) 0.9 x10^3/uL (0.0-1.1) Eosinophils # (Auto) 0.1 x10^3/uL (0.0-0.7) Basophils # (Auto) 0.0 x10^3/uL (0.0-0.2) Platelet Estimate Decreased (ADEQUATE) Giant Platelets Present Sodium Level 114 mmol/L (136-145) 115 mmol/L (136-145) Potassium Level 5.0 mmol/L (3.5-5.1) 5.3 mmol/L (3.5-5.1) Chloride Level 81 mmol/L (98-107) 82 mmol/L (98-107) Carbon Dioxide Level 18 mmol/L (21-32) 19 mmol/L (21-32) Anion Gap 15 (6-14) 14 (6-14) Blood Urea Nitrogen 30 mg/dL (8-26) 29 mg/dL (8-26) Creatinine 1.1 mg/dL (0.7-1.3) 1.1 mg/dL (0.7-1.3) Estimated GFR (Cockcroft-Gault) 63.5 63.5 BUN/Creatinine Ratio 27 (6-20) Glucose Level 378 mg/dL (70-99) 352 mg/dL (70-99) Calcium Level 8.7 mg/dL (8.5-10.1) 8.5 mg/dL (8.5-10.1) Total Bilirubin 0.9 mg/dL (0.2-1.0) Aspartate Amino Transf (AST/SGOT) 41 U/L (15-37) Alanine Aminotransferase (ALT/SGPT) 33 U/L (16-63) Alkaline Phosphatase 108 U/L (46-116) Ammonia 7 mcmol/L (11-34) Total Protein 7.1 g/dL (6.4-8.2) Albumin 3.6 g/dL (3.4-5.0) Albumin/Globulin Ratio 1.0 (1.0-1.7) Urine Color Yellow Urine Clarity Cloudy Urine pH 5.5 Urine Specific [place] >=1.030 Urine Protein Negative mg/dL (NEG-TRACE) Urine Glucose (UA) >=1000 mg/dL (NEG) Urine Ketones (Stick) 40 mg/dL (NEG) Urine Blood Negative (NEG) Urine Nitrite Negative (NEG) Urine Bilirubin Negative (NEG) Urine Urobilinogen Dipstick 0.2 mg/dL (0.2 mg/dL) Urine Leukocyte Esterase Negative (NEG) Urine RBC 0 /HPF (0-2) Urine WBC Occ /HPF (0-4) Urine Squamous Epithelial Cells Occ /LPF Urine Bacteria 0 /HPF (0-FEW) Urine Hyaline Casts Occasional /HPF Urine Mucus Slight /LPF Urine Osmolality 701 mOsmol/kg (.) Urine Sodium 38 mmol/L (Not Estab.) Urine Potassium 40.1 mmol/L (Not Estab.) Urine Chloride <20 mmol/L (Not Estab.) Serum Osmolality 266 mOsm/Kg (279-304) Glucose (Fingerstick) 274 mg/dL (70-99) Test 04/30/17 00:05 04/30/17 05:00 04/30/17 09:19 Sodium Level 121 mmol/L (136-145) 122 mmol/L (136-145) Potassium Level 4.3 mmol/L (3.5-5.1) 4.2 mmol/L (3.5-5.1) Chloride Level 90 mmol/L (98-107) 91 mmol/L (98-107) Carbon Dioxide Level 22 mmol/L (21-32) 22 mmol/L (21-32) Anion Gap 9 (6-14) 9 (6-14) Blood Urea Nitrogen 27 mg/dL (8-26) 23 mg/dL (8-26) Creatinine 1.0 mg/dL (0.7-1.3) 0.9 mg/dL (0.7-1.3) Estimated GFR (Cockcroft-Gault) 70.8 80.0 Glucose Level 195 mg/dL (70-99) 131 mg/dL (70-99) Calcium Level 8.4 mg/dL (8.5-10.1) 8.2 mg/dL (8.5-10.1) White Blood Count 7.7 x10^3/uL (4.0-11.0) Red Blood Count 3.85 x10^6/uL (4.30-5.70) Hemoglobin 12.0 g/dL (13.0-17.5) Hematocrit 34.1 % (39.0-53.0) Mean Corpuscular Volume 89 fL (79-100) Mean Corpuscular Hemoglobin 31 pg (25-35) Mean Corpuscular Hemoglobin Concent 35 g/dL (31-37) Red Cell Distribution Width 13.9 % (11.5-14.5) Platelet Count 88 x10^3/uL (140-400) Neutrophils (%) (Auto) 53 % (31-73) Lymphocytes (%) (Auto) 28 % (24-48) Monocytes (%) (Auto) 16 % (0-9) Eosinophils (%) (Auto) 2 % (0-3) Basophils (%) (Auto) 1 % (0-3) Neutrophils # (Auto) 4.1 x10^3uL (1.8-7.7) Lymphocytes # (Auto) 2.2 x10^3/uL (1.0-4.8) Monocytes # (Auto) 1.2 x10^3/uL (0.0-1.1) Eosinophils # (Auto) 0.2 x10^3/uL (0.0-0.7) Basophils # (Auto) 0.0 x10^3/uL (0.0-0.2) Platelet Estimate Adequate (ADEQUATE) Large Platelets Many Giant Platelets Many Glucose (Fingerstick) 126 mg/dL (70-99) Assessment/Plan Assessment/Plan IMP MET ENCEPHALOPATHY HYPONATREMIA-HYPOVOLEMIC PLAN STOP HIS HCTZ HYPERTONIC SALINE URINE LYTES NS LOW FLOW ERIKA PAEZ MD Apr 30, 2017 12:33
--- NOTE | 2017-04-30 16:28 | RAD ---
Cervical spine, 3 views, 04/30/2017: History: C2 fracture Comparison is made to a CT study from 04/22/2017. The AP views are of poor quality due to overlap of the patient's head. The bony structures are demineralized. The lateral view demonstrates a known fracture at the base of the odontoid process. There is a approximately 7 mm of posterior displacement of the odontoid process relative to the remainder of the C2 vertebral body, similar to that seen on the CT exam. The anterior arch of C1 maintains its normal relationship with the displaced odontoid process. The spinolaminar line posteriorly is disrupted. There is moderate disc space narrowing and marginal spurring at C3-4, C4-5 and to a lesser degree at C5-6. There are moderate degenerative changes involving scattered facet joints bilaterally. IMPRESSION: 1. Unchanged, displaced odontoid fracture as described above. 2. Moderate multilevel degenerative change.
[2017-04-30] MEDS: SENNOSIDES/DOCUSATE 8.6/50MG TABLET. PO SCH (21:28)
[2017-04-30] MEDS: INSULIN DETEMIR 300 UNITS/3 ML INSULN.PEN. SQ SCH (21:31)
--- NOTE | 2017-04-30 22:36 | ACF ---
Admission Forms Criteria HYPONATREMIA; HYPERNATREMIA; HYPOKALEMIA; HYPERKALEMIA; HYPOCALCEMIA; HYPERCALCEMIA Clinical Indications for Inpatient Care (Place 'X' for any and all applicable criteria): Ongoing inpatient care may be indicated for ANY ONE of the following [G](1)(2)(3 )(5): [X]I. Hyponatremia with ANY ONE of the following: [X]a) Sodium less than 130 mEq/L (mmol/L) (new) (6)(22) [ ]b) Sodium less than 135 mEq/L (mmol/L) with ANY ONE of the following: [ ]i) Severe medical etiology requiring inpatient management (eg, heart failure, hypovolemia) [ ]ii) Altered mental status [ ]iii) Seizures [ ]II. Hypernatremia with ANY ONE of the following: [ ]a) Sodium greater than 155 mEq/L (mmol/L) [ ]b) Sodium greater than 150 mEq/L (mmol/L) with ANY ONE of the following: [ ] i) Altered mental status [ ]ii) Seizures [ ]iii) Severe medical etiology (eg, hypovolemia, diabetes insipidus) [ ]iv) Severe weakness [ ]v) Severe medical etiology (eg, hemolysis, infection, drug overdose) [ ]III. Hypokalemia with ANY ONE of the following: [ ]a) Potassium less than 2.5 mEq/L (mmol/L) despite outpatient and emergency treatment [ ]b) Potassium less than 3.0 mEq/L (mmol/L) with ANY ONE of the following: [ ]i) Weakness [ ]ii) Cardiac abnormality (eg, arrhythmia, conduction disturbance) [ ]iii) Cardiac ischemia [ ]iv) Ileus [ ]v) Ongoing medical cause requiring inpatient management. ( e.g., acute renal wasting, SIADH) [ ]vi) Other severe symptoms [ ] IV. Hyperkalemia with ANY ONE of the following: [ ]a) Potassium greater than 6.5 mEq/L (mmol/L) [ ]b) Potassium greater than 5 mEq/L (mmol/L) with ANY ONE of the following: [ ]i) Severe ECG findings [H] [ ]ii) Acute worsening of renal failure (creatinine greater than 2.5 mg/dL (221 micromoles/L) or significant elevation for age and size) [ ] V. Hypocalcemia with ANY ONE of the following: [ ]a) Calcium less than 7 mg/dL (1.75 mmol/L) despite outpatient and emergency treatment(19) [ ]b) Calcium less than 8 mg/dL (2 mmol/L) with significant symptoms or findings; examples include: [ ]i) Cardiac abnormality (eg, arrhythmia or conduction disturbance) [ ]ii) Altered mental status [ ]iii) Seizures [ ]iv) Breathing difficulty [ ]v) Muscle spasms [ ]. Hypercalcemia with ANY ONE of the following: [ ]a) Calcium greater than 14 mg/dL (3.5 mmol/L) [ ]b) Calcium greater than 12 mg/dL (3 mmol/L) with ANY ONE of the following: [ ]i) Significant dehydration or hypovolemia as indicated by ANY ONE of the following(2): [ ]1. Clinically significant dehydration as indicated by ANY ONE of the following: [ ]A. Acute loss of weight from baseline (5% of body weight in adults, 9% in pediatric patients) [ ]B. Hemodynamic instability [ ]C. Acute renal failure [ ]D. Serum sodium greater than 150 mEq/L (mmol/L) [ ]2) Dehydration that is persistent indicated by ALL of the following: [ ]A. Oral rehydration therapy not tolerated or insufficient to adequately correct dehydration [ ]B. Appropriate intravenous treatment (eg, fluids ) does not readily correct dehydration ie, after 12 to 24 hours of treatment) [ ]ii) Significant symptoms or findings; examples include: [ ]1) Altered mental status [ ]2) Cardiac abnormality (eg, arrhythmia, conduction disturbance) [ ]3) Cardiac abnormality (eg, arrhythmia, conduction disturbance) The original [facility] content created by [employer] has been revised. The portions of the content which have been revised are identified through the use of italic text or in bold, and [facility] has neither reviewed nor approved the modified material. All other unmodified content is copyright [facility] [employer] Please see references footnoted in the original [facility] [employer] edition 2016 Admission Criteria Met?: Yes HAIR TEJADA Apr 30, 2017 22:36
[2017-05-01 03:10] VITALS: BP 151/69
[2017-05-01] MEDS ORDERED: ONDANSETRON PF 4 MG/2 ML VIAL. IV PRN (04:15)
[2017-05-01] MEDS ORDERED: fentaNYL PF VIAL 100 MCG/2 ML VIAL IV PRN (04:15)
[2017-05-01] MEDS ORDERED: ACETAMINOPHEN 325 MG TABLET. PO PRN (04:15)
[2017-05-01 05:59] LABS: CALCIUM 8.3 mg/dL (8.5-10.1); CREATININE 0.8 mg/dL (0.7-1.3); GFR 91.7; POTASSIUM 3.9 mmol/L (3.5-5.1)
[2017-05-01 06:02] LABS: MAGNESIUM 1.6 mg/dL (1.8-2.4); PHOSPHORUS 2.9 mg/dL (2.6-4.7)
[2017-05-01 07:00] VITALS: BP 164/66
[2017-05-01] MEDS ORDERED: PANTOPRAZOLE 40 MG TABLET.DR. PO SCH (07:30)
[2017-05-01] MEDS: INSULIN ASPART 300 UNITS/3 ML INSULN.PEN SQ SCH ×3 (07:30→17:36)
[2017-05-01] MEDS: metFORMIN 500 MG TABLET PO SCH ×2 (08:00→17:32)
[2017-05-01] MEDS: CETIRIZINE HCL 10 MG TABLET. PO SCH (08:11)
[2017-05-01] MEDS: ACETAMINOPHEN 500 MG TABLET PO SCH ×4 (08:12→21:13)
[2017-05-01] MEDS: LOSARTAN POTASSIUM 50 MG TABLET. PO SCH (08:12)
[2017-05-01] MEDS ORDERED: predniSONE 20 MG TABLET PO SCH (09:00)
--- NOTE | 2017-05-01 09:51 | PDOC ---
PROGRESS NOTES Subjective Subjective sleeping. labs consistent with SIADH and dehydration. serum sodium 124. blood sugars on low side. serum magnesium level is ow. Objective Objective Vital Signs Date Time Temp Pulse Resp B/P (MAP) Pulse Ox O2 Delivery O2 Flow Rate FiO2 05/01/17 08:12 68 164/66 05/01/17 08:00 Room Air 05/01/17 07:00 97.8 16 99 97.8 Intake and Output 05/01/17 07:00 Intake Total 672 ml Output Total 1450 ml Balance -778 ml Intake Oral 350 ml IV Total 322 ml Output Urine Total 1450 ml Physical Exam Abdomen: Soft Heart: Regular rate, Normal S1, Normal S2 Extremities: No edema General: Alert HEENT: Atraumatic, Other (wearing cervical collar) Lungs: Clear to auscultation Neuro: Other (sleeping) Psych/Mental Status: Other (sleeping) Skin: No rashes Assessment Assessment 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 off hctz 2. Metabolic encephalopathy resolved 3. CT cervical fracture with fracture of the odontoid with posterior displacement, treated with a cervical collar. 4. Diabetes mellitus type 2. 5. Hyperglycemia. 6. Hypertension. 7. Hyperlipidemia. 8. Dehydration resolved 9. Mild metabolic acidosis resolved hypomagnesemia Plan Plan of Care continue iv normal saline lab tomorrow PT and OT cervical collar decrease insulin iv magnesium today Comment Review of Relevant I have reviewed the following items jeannine (where applicable) has been applied. Labs Laboratory Tests Test 04/29/17 14:00 04/29/17 14:15 04/29/17 15:25 04/29/17 17:00 White Blood Count 9.0 x10^3/uL (4.0-11.0) Red Blood Count 4.03 x10^6/uL (4.30-5.70) Hemoglobin 12.3 g/dL (13.0-17.5) Hematocrit 37.3 % (39.0-53.0) Mean Corpuscular Volume 93 fL (79-100) Mean Corpuscular Hemoglobin 30 pg (25-35) Mean Corpuscular Hemoglobin Concent 33 g/dL (31-37) Red Cell Distribution Width 13.6 % (11.5-14.5) Platelet Count 86 x10^3/uL (140-400) Neutrophils (%) (Auto) 71 % (31-73) Lymphocytes (%) (Auto) 18 % (24-48) Monocytes (%) (Auto) 10 % (0-9) Eosinophils (%) (Auto) 1 % (0-3) Basophils (%) (Auto) 0 % (0-3) Neutrophils # (Auto) 6.4 x10^3uL (1.8-7.7) Lymphocytes # (Auto) 1.6 x10^3/uL (1.0-4.8) Monocytes # (Auto) 0.9 x10^3/uL (0.0-1.1) Eosinophils # (Auto) 0.1 x10^3/uL (0.0-0.7) Basophils # (Auto) 0.0 x10^3/uL (0.0-0.2) Platelet Estimate Decreased (ADEQUATE) Giant Platelets Present Sodium Level 114 mmol/L (136-145) 115 mmol/L (136-145) Potassium Level 5.0 mmol/L (3.5-5.1) 5.3 mmol/L (3.5-5.1) Chloride Level 81 mmol/L (98-107) 82 mmol/L (98-107) Carbon Dioxide Level 18 mmol/L (21-32) 19 mmol/L (21-32) Anion Gap 15 (6-14) 14 (6-14) Blood Urea Nitrogen 30 mg/dL (8-26) 29 mg/dL (8-26) Creatinine 1.1 mg/dL (0.7-1.3) 1.1 mg/dL (0.7-1.3) Estimated GFR (Cockcroft-Gault) 63.5 63.5 BUN/Creatinine Ratio 27 (6-20) Glucose Level 378 mg/dL (70-99) 352 mg/dL (70-99) Calcium Level 8.7 mg/dL (8.5-10.1) 8.5 mg/dL (8.5-10.1) Total Bilirubin 0.9 mg/dL (0.2-1.0) Aspartate Amino Transf (AST/SGOT) 41 U/L (15-37) Alanine Aminotransferase (ALT/SGPT) 33 U/L (16-63) Alkaline Phosphatase 108 U/L (46-116) Ammonia 7 mcmol/L (11-34) Total Protein 7.1 g/dL (6.4-8.2) Albumin 3.6 g/dL (3.4-5.0) Albumin/Globulin Ratio 1.0 (1.0-1.7) Urine Color Yellow Urine Clarity Cloudy Urine pH 5.5 Urine Specific [place] >=1.030 Urine Protein Negative mg/dL (NEG-TRACE) Urine Glucose (UA) >=1000 mg/dL (NEG) Urine Ketones (Stick) 40 mg/dL (NEG) Urine Blood Negative (NEG) Urine Nitrite Negative (NEG) Urine Bilirubin Negative (NEG) Urine Urobilinogen Dipstick 0.2 mg/dL (0.2 mg/dL) Urine Leukocyte Esterase Negative (NEG) Urine RBC 0 /HPF (0-2) Urine WBC Occ /HPF (0-4) Urine Squamous Epithelial Cells Occ /LPF Urine Bacteria 0 /HPF (0-FEW) Urine Hyaline Casts Occasional /HPF Urine Mucus Slight /LPF Urine Osmolality 701 mOsmol/kg (.) Urine Sodium 38 mmol/L (Not Estab.) Urine Potassium 40.1 mmol/L (Not Estab.) Urine Chloride <20 mmol/L (Not Estab.) Serum Osmolality 266 mOsm/Kg (279-304) Nasal Screen MRSA (PCR) Negative (Negative) Test 04/29/17 20:35 04/30/17 00:05 04/30/17 05:00 04/30/17 09:19 Glucose (Fingerstick) 274 mg/dL (70-99) 126 mg/dL (70-99) Sodium Level 121 mmol/L (136-145) 122 mmol/L (136-145) Potassium Level 4.3 mmol/L (3.5-5.1) 4.2 mmol/L (3.5-5.1) Chloride Level 90 mmol/L (98-107) 91 mmol/L (98-107) Carbon Dioxide Level 22 mmol/L (21-32) 22 mmol/L (21-32) Anion Gap 9 (6-14) 9 (6-14) Blood Urea Nitrogen 27 mg/dL (8-26) 23 mg/dL (8-26) Creatinine 1.0 mg/dL (0.7-1.3) 0.9 mg/dL (0.7-1.3) Estimated GFR (Cockcroft-Gault) 70.8 80.0 Glucose Level 195 mg/dL (70-99) 131 mg/dL (70-99) Calcium Level 8.4 mg/dL (8.5-10.1) 8.2 mg/dL (8.5-10.1) White Blood Count 7.7 x10^3/uL (4.0-11.0) Red Blood Count 3.85 x10^6/uL (4.30-5.70) Hemoglobin 12.0 g/dL (13.0-17.5) Hematocrit 34.1 % (39.0-53.0) Mean Corpuscular Volume 89 fL (79-100) Mean Corpuscular Hemoglobin 31 pg (25-35) Mean Corpuscular Hemoglobin Concent 35 g/dL (31-37) Red Cell Distribution Width 13.9 % (11.5-14.5) Platelet Count 88 x10^3/uL (140-400) Neutrophils (%) (Auto) 53 % (31-73) Lymphocytes (%) (Auto) 28 % (24-48) Monocytes (%) (Auto) 16 % (0-9) Eosinophils (%) (Auto) 2 % (0-3) Basophils (%) (Auto) 1 % (0-3) Neutrophils # (Auto) 4.1 x10^3uL (1.8-7.7) Lymphocytes # (Auto) 2.2 x10^3/uL (1.0-4.8) Monocytes # (Auto) 1.2 x10^3/uL (0.0-1.1) Eosinophils # (Auto) 0.2 x10^3/uL (0.0-0.7) Basophils # (Auto) 0.0 x10^3/uL (0.0-0.2) Platelet Estimate Adequate (ADEQUATE) Large Platelets Many Giant Platelets Many Test 04/30/17 12:17 04/30/17 16:22 04/30/17 20:55 05/01/17 05:10 Glucose (Fingerstick) 159 mg/dL (70-99) 79 mg/dL (70-99) 192 mg/dL (70-99) Sodium Level 124 mmol/L (136-145) Potassium Level 3.9 mmol/L (3.5-5.1) Chloride Level 92 mmol/L (98-107) Carbon Dioxide Level 24 mmol/L (21-32) Anion Gap 8 (6-14) Blood Urea Nitrogen 17 mg/dL (8-26) Creatinine 0.8 mg/dL (0.7-1.3) Estimated GFR (Cockcroft-Gault) 91.7 Glucose Level 81 mg/dL (70-99) Calcium Level 8.3 mg/dL (8.5-10.1) Phosphorus Level 2.9 mg/dL (2.6-4.7) Magnesium Level 1.6 mg/dL (1.8-2.4) Test 05/01/17 07:12 Glucose (Fingerstick) 67 mg/dL (70-99) Laboratory Tests Test 04/30/17 12:17 04/30/17 16:22 04/30/17 20:55 05/01/17 05:10 Glucose (Fingerstick) 159 mg/dL (70-99) 79 mg/dL (70-99) 192 mg/dL (70-99) Sodium Level 124 mmol/L (136-145) Potassium Level 3.9 mmol/L (3.5-5.1) Chloride Level 92 mmol/L (98-107) Carbon Dioxide Level 24 mmol/L (21-32) Anion Gap 8 (6-14) Blood Urea Nitrogen 17 mg/dL (8-26) Creatinine 0.8 mg/dL (0.7-1.3) Estimated GFR (Cockcroft-Gault) 91.7 Glucose Level 81 mg/dL (70-99) Calcium Level 8.3 mg/dL (8.5-10.1) Phosphorus Level 2.9 mg/dL (2.6-4.7) Magnesium Level 1.6 mg/dL (1.8-2.4) Test 05/01/17 07:12 Glucose (Fingerstick) 67 mg/dL (70-99) Medications Current Medications Ondansetron HCl (Zofran) 4 mg PRN Q6HRS PRN IV NAUSEA/VOMITING; Start 04/29/17 at 16:00 Acetaminophen (Tylenol) 500 mg QID PO Last administered on 05/01/17t 08:12; Start 04/29/17 at 17:00 Acetaminophen (Tylenol) 325 mg Q4HRS PRN PO MILD PAIN / TEMP; Start 04/29/17 at 16:00 Insulin Aspart (NovoLOG) 10 units TIDAC SQ Last administered on 04/30/17 12:25 ; Start 04/29/17 at 16:30 Insulin Detemir (Levemir) 10 units QHS SQ Last administered on 04/30/17 21:31 ; Start 04/29/17 at 21:00 Sodium Chloride 200 ml @ 40 mls/hr 1X ONCE IV Last administered on 04/29/17 16:48; Start 04/29/17 at 16:00; Stop 04/29/17 at 17:04; Status DC Sodium Chloride 1,000 ml @ 75 mls/hr [id number] IV Last administered on 21:52; Start 04/29/17 at 21:00 Metformin HCl (Glucophage) 500 mg BIDWMEALS PO ; Start 04/29/17 at 17:00; Stop 04/29/17 at 17:00; Status DC Senna/Docusate Sodium (Senna Plus) 2 tab QHS PO Last administered on 04/30/17 21:28; Start 04/29/17 at 21:00 Clonidine HCl (Catapres) 0.1 mg Q6HRS PRN PO HYPERTENSION, SEE COMMENTS; Start 04/29/17 at 16:00 Oxymetazoline HCl (Afrin) 2 spray 1X ONCE NS Last administered on 04/29/17 16 :31; Start 04/29/17 at 16:15; Stop 04/29/17 at 16:16; Status DC Sodium Chloride 200 ml @ 40 mls/hr 1X ONCE IV ; Start 04/29/17 at 16:30; Stop 04/29/17 at 21:29; Status UNV Sodium Chloride 1,000 ml @ 75 mls/hr [id number] IV ; Start 04/29/17 at 16:30; Stop 04/30/17 at 08:49; Status DC Cetirizine HCl (ZyrTEC) 10 mg DAILY PO Last administered on 05/01/17 08:11; Start 04/29/17 at 17:00 Sodium Chloride 200 ml @ 40 mls/hr 1X ONCE IV Last administered on 04/29/17 17:08; Start 04/29/17 at 17:04; Stop 04/29/17 at 20:59; Status DC Metformin HCl (Glucophage) 500 mg BIDWMEALS PO Last administered on 04/30/17t 16:31; Start 04/30/17 at 09:00 Losartan Potassium (Cozaar) 100 mg DAILY PO ; Start 04/30/17 at 09:00; Stop at 09:00; Status DC Losartan Potassium (Cozaar) 100 mg DAILY PO ; Start 04/30/17 at 09:00; Status UNV Losartan Potassium (Cozaar) 100 mg DAILY PO Last administered on 05/01/17 08: 12; Start 04/30/17 at 09:00 Fentanyl Citrate (Fentanyl 2ml Vial) 25 mcg PRN Q2HR PRN IV PAIN; Start at 04:15; Status Cancel Acetaminophen (Tylenol) 650 mg PRN Q6HRS PRN PO pain; Start 05/01/17 at 04:15; Status Cancel Ondansetron HCl (Zofran) 4 mg PRN Q6HRS PRN IV NAUSEA/VOMITING; Start 05/01/17 at 04:15; Status Cancel Prednisone (Prednisone) 60 mg DAILY PO ; Start 05/01/17 at 09:00; Status Cancel Pantoprazole Sodium (Protonix) 40 mg DAILYAC PO ; Start 05/01/17 at 07:30; Status Cancel Active Scripts Active Hydrochlorothiazide Tablet (Hydrochlorothiazide) 25 Mg Tablet 25 Mg PO DAILY 30 Days Tramadol Hcl 50 Mg Tablet 50 Mg PO PRN Q6HRS PRN 30 Days Novolog Flexpen (Insulin Aspart) 100 Unit/1 Ml Insuln.pen 12 Units SQ TIDAC 30 Days Levemir Flextouch (Insulin Detemir) 100 Unit/1 Ml Insuln.pen 14 Units SQ QHS 30 Days Reported Multivitamins (Multivitamin) 1 Each Tablet 1 Tab PO DAILY Losartan Potassium 25 Mg Tablet 100 Mg PO DAILY Lovastatin 40 Mg Tablet 1 Tab PO HS Metformin Hcl 500 Mg Tablet 1 Tab PO BID Vitals/I & O Vital Sign - Last 24 Hours 04/30/17 04/30/17 04/30/17 04/30/17 11:00 11:00 15:00 19:10 Temp 98.1 98.1 98.0 97.5 98.1 98.1 98.0 97.5 Pulse 68 68 70 80 Resp 18 18 16 18 B/P (MAP) 139/61 (87) 139/61 (87) 132/71 (91) 153/59 (90) Pulse Ox 98 98 98 98 O2 Delivery Room Air Room Air Room Air Room Air 04/30/17 04/30/17 05/01/17 05/01/17 20:01 23:10 03:10 07:00 Temp 98.2 97.5 97.8 98.2 97.5 97.8 Pulse 67 63 68 Resp 16 18 16 B/P (MAP) 152/64 (93) 151/69 (96) 164/66 (98) Pulse Ox 96 98 99 O2 Delivery Room Air Room Air Room Air Room Air 05/01/17 05/01/17 08:00 08:12 Pulse 68 B/P (MAP) 164/66 O2 Delivery Room Air Intake and Output 04/30/17 04/30/17 05/01/17 15:00 23:00 07:00 Intake Total 322 ml 350 ml Output Total 400 ml 1050 ml Balance -400 ml 322 ml -700 ml CHARLY VILLARREAL MD May 01, 2017 09:51
[2017-05-01] MEDS ORDERED: MAGNESIUM SULFATE 2GM 50 ML IV ONE (10:00)
[2017-05-01] MEDS: IV NORMAL SALINE 1000ML BAG 1,000 ML IV SCH (10:42)
--- NOTE | 2017-05-01 10:58 | PDOC ---
Renal-Progress Notes Subjective Notes Notes NONE History of Present Illness Hx of present illness BETTER Vitals Vitals Vital Signs Date Time Temp Pulse Resp B/P (MAP) Pulse Ox O2 Delivery O2 Flow Rate FiO2 05/01/17 08:12 68 164/66 05/01/17 08:00 Room Air 05/01/17 07:00 97.8 16 99 97.8 Weight Weight [ ] I.O. Intake and Output Intake and Output 05/01/17 07:00 Intake Total 672 ml Output Total 1450 ml Balance -778 ml Intake Oral 350 ml IV Total 322 ml Output Urine Total 1450 ml Labs Labs Laboratory Tests Test 04/30/17 12:17 04/30/17 16:22 04/30/17 20:55 05/01/17 05:10 Glucose (Fingerstick) 159 mg/dL (70-99) 79 mg/dL (70-99) 192 mg/dL (70-99) Sodium Level 124 mmol/L (136-145) Potassium Level 3.9 mmol/L (3.5-5.1) Chloride Level 92 mmol/L (98-107) Carbon Dioxide Level 24 mmol/L (21-32) Anion Gap 8 (6-14) Blood Urea Nitrogen 17 mg/dL (8-26) Creatinine 0.8 mg/dL (0.7-1.3) Estimated GFR (Cockcroft-Gault) 91.7 Glucose Level 81 mg/dL (70-99) Calcium Level 8.3 mg/dL (8.5-10.1) Phosphorus Level 2.9 mg/dL (2.6-4.7) Magnesium Level 1.6 mg/dL (1.8-2.4) Test 05/01/17 07:12 Glucose (Fingerstick) 67 mg/dL (70-99) Review of Systems Constitutional: yes: no symptom reported Physical Exam General Appearance: no apparent distress Skin: warm Respiratory: bilateral CTA Heart: S1S2 Abdomen: soft Extremities: no edema, atrophy Neurology: alert Assessment Assessment IMP HYPOVOLEMIC HYPONATREMIA-BETTER WITH NA OF 124 HYPOVOLEMIA MET ENCEPHALOPATHY RECENT C-2 FX PLAN CONT TO HOLD DIURETICS CONT WITH ISOTONIC SALINE LABS IN AM D/W ERIKA GONZALES MD May 01, 2017 10:58
[2017-05-01 11:00] VITALS: BP 158/66
[2017-05-01 19:57] VITALS: BP 123/56
[2017-05-01] MEDS ORDERED: INSULIN DETEMIR 300 UNITS/3 ML INSULN.PEN. SQ SCH (21:00)
[2017-05-01] MEDS: SENNOSIDES/DOCUSATE 8.6/50MG TABLET. PO SCH (21:13)
[2017-05-01 23:50] VITALS: BP 151/60
[2017-05-02] MEDS: IV NORMAL SALINE 1000ML BAG 1,000 ML IV SCH ×2 (03:46→19:55)
[2017-05-02 05:00] LABS: CALCIUM 8.7 mg/dL (8.5-10.1); CREATININE 0.7 mg/dL (0.7-1.3); GFR 106.9; MAGNESIUM 2.2 mg/dL (1.8-2.4); POTASSIUM 4.1 mmol/L (3.5-5.1)
[2017-05-02 07:00] VITALS: BP 150/72
[2017-05-02] MEDS: INSULIN ASPART 300 UNITS/3 ML INSULN.PEN SQ SCH ×3 (07:30→17:05)
[2017-05-02] MEDS: CETIRIZINE HCL 10 MG TABLET. PO SCH (08:22)
[2017-05-02] MEDS: metFORMIN 500 MG TABLET PO SCH ×2 (08:22→16:58)
[2017-05-02] MEDS: LOSARTAN POTASSIUM 50 MG TABLET. PO SCH (08:22)
[2017-05-02] MEDS: ACETAMINOPHEN 500 MG TABLET PO SCH ×4 (08:22→22:12)
--- NOTE | 2017-05-02 09:38 | PDOC ---
PROGRESS NOTES Subjective Subjective fbs 47 and then treated to over 90. feels better . alert and coherent. pain controlled. serum sodium 128. discussed SNF for PT and OT when he is dismissed. Objective Objective Vital Signs Date Time Temp Pulse Resp B/P (MAP) Pulse Ox O2 Delivery O2 Flow Rate FiO2 05/02/17 08:22 59 151/60 05/02/17 07:00 98.0 20 92 Room Air 98.0 Intake and Output 05/02/17 07:00 Intake Total 1040 ml Output Total 2050 ml Balance -1010 ml Intake Oral 1040 ml Output Urine Total 2050 ml # Bowel Movements 2 Physical Exam Abdomen: Soft Heart: Regular rate, Normal S1, Normal S2 Extremities: No edema General: Alert HEENT: Atraumatic Lungs: Clear to auscultation, Other (cervical collar) MUSCULOSKELETAL: No swelling Neuro: Normal speech Psych/Mental Status: Mental status NL Skin: No rashes Assessment Assessment 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 off hctz 2. Metabolic encephalopathy resolved 3. CT cervical fracture with fracture of the odontoid with posterior displacement, treated with a cervical collar. 4. Diabetes mellitus type 2.. hypoglycemia 5. Hyperglycemia. 6. Hypertension. 7. Hyperlipidemia. 8. Dehydration resolved 9. Mild metabolic acidosis resolved Plan Plan of Care continue iv normal saline decrease insulin tylenol qid PT and OT scd for dvt prophylaxis SNF screen but not ready for dismissal yet due to hyponatremia Comment Review of Relevant I have reviewed the following items jeannine (where applicable) has been applied. Labs Laboratory Tests Test 04/30/17 12:17 04/30/17 16:22 04/30/17 20:55 05/01/17 05:10 Glucose (Fingerstick) 159 mg/dL (70-99) 79 mg/dL (70-99) 192 mg/dL (70-99) Sodium Level 124 mmol/L (136-145) Potassium Level 3.9 mmol/L (3.5-5.1) Chloride Level 92 mmol/L (98-107) Carbon Dioxide Level 24 mmol/L (21-32) Anion Gap 8 (6-14) Blood Urea Nitrogen 17 mg/dL (8-26) Creatinine 0.8 mg/dL (0.7-1.3) Estimated GFR (Cockcroft-Gault) 91.7 Glucose Level 81 mg/dL (70-99) Calcium Level 8.3 mg/dL (8.5-10.1) Phosphorus Level 2.9 mg/dL (2.6-4.7) Magnesium Level 1.6 mg/dL (1.8-2.4) Test 05/01/17 07:12 05/01/17 12:01 05/01/17 16:48 05/01/17 20:38 Glucose (Fingerstick) 67 mg/dL (70-99) 167 mg/dL (70-99) 217 mg/dL (70-99) 134 mg/dL (70-99) Test 05/02/17 04:19 05/02/17 05:30 05/02/17 07:59 Sodium Level 128 mmol/L (136-145) Potassium Level 4.1 mmol/L (3.5-5.1) Chloride Level 96 mmol/L (98-107) Carbon Dioxide Level 23 mmol/L (21-32) Anion Gap 9 (6-14) Blood Urea Nitrogen 15 mg/dL (8-26) Creatinine 0.7 mg/dL (0.7-1.3) Estimated GFR (Cockcroft-Gault) 106.9 Glucose Level 58 mg/dL (70-99) Calcium Level 8.7 mg/dL (8.5-10.1) Magnesium Level 2.2 mg/dL (1.8-2.4) Glucose (Fingerstick) 47 mg/dL (70-99) 97 mg/dL (70-99) Laboratory Tests Test 05/01/17 12:01 05/01/17 16:48 05/01/17 20:38 05/02/17 04:19 Glucose (Fingerstick) 167 mg/dL (70-99) 217 mg/dL (70-99) 134 mg/dL (70-99) Sodium Level 128 mmol/L (136-145) Potassium Level 4.1 mmol/L (3.5-5.1) Chloride Level 96 mmol/L (98-107) Carbon Dioxide Level 23 mmol/L (21-32) Anion Gap 9 (6-14) Blood Urea Nitrogen 15 mg/dL (8-26) Creatinine 0.7 mg/dL (0.7-1.3) Estimated GFR (Cockcroft-Gault) 106.9 Glucose Level 58 mg/dL (70-99) Calcium Level 8.7 mg/dL (8.5-10.1) Magnesium Level 2.2 mg/dL (1.8-2.4) Test 05/02/17 05:30 05/02/17 07:59 Glucose (Fingerstick) 47 mg/dL (70-99) 97 mg/dL (70-99) Medications Current Medications Ondansetron HCl (Zofran) 4 mg PRN Q6HRS PRN IV NAUSEA/VOMITING; Start 04/29/17 at 16:00 Acetaminophen (Tylenol) 500 mg QID PO Last administered on 05/02/17 08:22; Start 04/29/17 at 17:00 Acetaminophen (Tylenol) 325 mg Q4HRS PRN PO MILD PAIN / TEMP; Start 04/29/17 at 16:00 Insulin Aspart (NovoLOG) 10 units TIDAC SQ Last administered on 04/30/17 12:25 ; Start 04/29/17 at 16:30; Stop 05/01/17 at 09:56; Status DC Insulin Detemir (Levemir) 10 units QHS SQ Last administered on 04/30/17 21:31 ; Start 04/29/17 at 21:00; Stop 05/01/17 at 09:56; Status DC Sodium Chloride 200 ml @ 40 mls/hr 1X ONCE IV Last administered on 04/29/17 16:48; Start 04/29/17 at 16:00; Stop 04/29/17 at 17:04; Status DC Sodium Chloride 1,000 ml @ 60 mls/hr [id number] IV Last administered on 03:46; Start 04/29/17 at 21:00 Metformin HCl (Glucophage) 500 mg BIDWMEALS PO ; Start 04/29/17 at 17:00; Stop 04/29/17 at 17:00; Status DC Senna/Docusate Sodium (Senna Plus) 2 tab QHS PO Last administered on 05/01/17 21:13; Start 04/29/17 at 21:00 Clonidine HCl (Catapres) 0.1 mg Q6HRS PRN PO HYPERTENSION, SEE COMMENTS; Start 04/29/17 at 16:00 Oxymetazoline HCl (Afrin) 2 spray 1X ONCE NS Last administered on 04/29/17 16 :31; Start 04/29/17 at 16:15; Stop 04/29/17 at 16:16; Status DC Sodium Chloride 200 ml @ 40 mls/hr 1X ONCE IV ; Start 04/29/17 at 16:30; Stop 04/29/17 at 21:29; Status UNV Sodium Chloride 1,000 ml @ 75 mls/hr [id number] IV ; Start 04/29/17 at 16:30; Stop 04/30/17 at 08:49; Status DC Cetirizine HCl (ZyrTEC) 10 mg DAILY PO Last administered on 05/02/17 08:22; Start 04/29/17 at 17:00 Sodium Chloride 200 ml @ 40 mls/hr 1X ONCE IV Last administered on 04/29/17 17:08; Start 04/29/17 at 17:04; Stop 04/29/17 at 20:59; Status DC Metformin HCl (Glucophage) 500 mg BIDWMEALS PO Last administered on 05/02/17 08:22; Start 04/30/17 at 09:00 Losartan Potassium (Cozaar) 100 mg DAILY PO ; Start 04/30/17 at 09:00; Stop at 09:00; Status DC Losartan Potassium (Cozaar) 100 mg DAILY PO ; Start 04/30/17 at 09:00; Status UNV Losartan Potassium (Cozaar) 100 mg DAILY PO Last administered on 05/02/17 08: 22; Start 04/30/17 at 09:00 Fentanyl Citrate (Fentanyl 2ml Vial) 25 mcg PRN Q2HR PRN IV PAIN; Start at 04:15; Status Cancel Acetaminophen (Tylenol) 650 mg PRN Q6HRS PRN PO pain; Start 05/01/17 at 04:15; Status Cancel Ondansetron HCl (Zofran) 4 mg PRN Q6HRS PRN IV NAUSEA/VOMITING; Start 05/01/17 at 04:15; Status Cancel Prednisone (Prednisone) 60 mg DAILY PO ; Start 05/01/17 at 09:00; Status Cancel Pantoprazole Sodium (Protonix) 40 mg DAILYAC PO ; Start 05/01/17 at 07:30; Status Cancel Insulin Aspart (NovoLOG) 8 units TIDAC SQ Last administered on 05/01/17 17:36 ; Start 05/01/17 at 11:30; Stop 05/02/17 at 09:00; Status DC Insulin Detemir (Levemir) 6 units QHS SQ Last administered on 05/01/17 21:16; Start 05/01/17 at 21:00; Stop 05/02/17 at 09:00; Status DC Magnesium Sulfate/ Dextrose 50 ml @ 25 mls/hr 1X ONCE IV Last administered on 05/01/17 10:42; Start 05/01/17 at 10:00; Stop 05/01/17 at 11:59; Status DC Insulin Aspart (NovoLOG) 6 units TIDAC SQ ; Start 05/02/17 at 11:30 Insulin Detemir (Levemir) 4 units QHS SQ ; Start 05/02/17 at 21:00 Active Scripts Active Hydrochlorothiazide Tablet (Hydrochlorothiazide) 25 Mg Tablet 25 Mg PO DAILY 30 Days Tramadol Hcl 50 Mg Tablet 50 Mg PO PRN Q6HRS PRN 30 Days Novolog Flexpen (Insulin Aspart) 100 Unit/1 Ml Insuln.pen 12 Units SQ TIDAC 30 Days Levemir Flextouch (Insulin Detemir) 100 Unit/1 Ml Insuln.pen 14 Units SQ QHS 30 Days Reported Multivitamins (Multivitamin) 1 Each Tablet 1 Tab PO DAILY Losartan Potassium 25 Mg Tablet 100 Mg PO DAILY Lovastatin 40 Mg Tablet 1 Tab PO HS Metformin Hcl 500 Mg Tablet 1 Tab PO BID Vitals/I & O Vital Sign - Last 24 Hours 05/01/17 05/01/17 05/01/17 05/01/17 11:00 19:57 20:00 23:50 Temp 97.9 98.2 98.3 97.9 98.2 98.3 Pulse 66 70 59 Resp 16 20 18 B/P (MAP) 158/66 (96) 123/56 (78) 151/60 (90) Pulse Ox 98 98 98 O2 Delivery Room Air Room Air Room Air Room Air 05/02/17 05/02/17 05/02/17 03:00 07:00 08:22 Temp 98.0 98.0 Pulse 64 59 Resp 20 B/P (MAP) 150/72 (98) 151/60 Pulse Ox 92 O2 Delivery Room Air Room Air Intake and Output 05/01/17 05/01/17 05/02/17 15:00 23:00 07:00 Intake Total 830 ml 210 ml Output Total 850 ml 1200 ml Balance -20 ml -990 ml CHARLY VILLARREAL MD May 02, 2017 09:38
[2017-05-02 11:00] VITALS: BP 142/70
--- NOTE | 2017-05-02 11:54 | PDOC ---
Renal-Progress Notes Subjective Notes Notes NONE History of Present Illness Hx of present illness BETTER Vitals Vitals Vital Signs Date Time Temp Pulse Resp B/P (MAP) Pulse Ox O2 Delivery O2 Flow Rate FiO2 05/02/17 08:22 59 151/60 05/02/17 08:00 Room Air 05/02/17 07:00 98.0 20 92 98.0 Weight Weight [ ] I.O. Intake and Output Intake and Output 05/02/17 07:00 Intake Total 1040 ml Output Total 2050 ml Balance -1010 ml Intake Oral 1040 ml Output Urine Total 2050 ml # Bowel Movements 2 Labs Labs Laboratory Tests Test 05/01/17 12:01 05/01/17 16:48 05/01/17 20:38 05/02/17 04:19 Glucose (Fingerstick) 167 mg/dL (70-99) 217 mg/dL (70-99) 134 mg/dL (70-99) Sodium Level 128 mmol/L (136-145) Potassium Level 4.1 mmol/L (3.5-5.1) Chloride Level 96 mmol/L (98-107) Carbon Dioxide Level 23 mmol/L (21-32) Anion Gap 9 (6-14) Blood Urea Nitrogen 15 mg/dL (8-26) Creatinine 0.7 mg/dL (0.7-1.3) Estimated GFR (Cockcroft-Gault) 106.9 Glucose Level 58 mg/dL (70-99) Calcium Level 8.7 mg/dL (8.5-10.1) Magnesium Level 2.2 mg/dL (1.8-2.4) Test 05/02/17 05:30 05/02/17 07:59 05/02/17 11:20 Glucose (Fingerstick) 47 mg/dL (70-99) 97 mg/dL (70-99) 274 mg/dL (70-99) Review of Systems Constitutional: yes: no symptom reported Physical Exam General Appearance: no apparent distress Skin: warm Respiratory: bilateral CTA Heart: S1S2 Abdomen: soft Extremities: no edema, atrophy Neurology: alert Assessment Assessment IMP HYPOVOLEMIC HYPONATREMIA-BETTER WITH NA OF 128 HYPOVOLEMIA MET ENCEPHALOPATHY RECENT C-2 FX PLAN CONT TO HOLD DIURETICS CONT WITH ISOTONIC SALINE LABS IN AM ERIKA PAEZ MD May 02, 2017 11:54
[2017-05-02 15:00] VITALS: BP 136/68
[2017-05-02 20:34] VITALS: BP 128/54
[2017-05-02] MEDS ORDERED: INSULIN DETEMIR 300 UNITS/3 ML INSULN.PEN. SQ SCH (21:00)
[2017-05-02] MEDS: SENNOSIDES/DOCUSATE 8.6/50MG TABLET. PO SCH (22:12)
[2017-05-02 23:13] VITALS: BP 132/58
[2017-05-03 03:14] VITALS: BP 157/56
[2017-05-03 06:04] LABS: CALCIUM 8.5 mg/dL (8.5-10.1); CREATININE 0.9 mg/dL (0.7-1.3); POTASSIUM 4.6 mmol/L (3.5-5.1)
[2017-05-03 07:44] VITALS: BP 153/70
--- NOTE | 2017-05-03 08:29 | PDOC ---
PROGRESS NOTES Subjective Subjective some neck pain. moving arms and legs okay. serum sodium 131. blood sugars are higher and will increase insulin. bowels are okay, Objective Objective Vital Signs Date Time Temp Pulse Resp B/P (MAP) Pulse Ox O2 Delivery O2 Flow Rate FiO2 05/03/17 07:44 97.1 69 20 153/70 (97) 98 Room Air 97.1 Intake and Output 05/03/17 07:00 Intake Total 1580 ml Output Total 840 ml Balance 740 ml Intake Oral 730 ml IV Total 850 ml Output Urine Total 840 ml # Voids 1 Physical Exam Abdomen: Soft Heart: Regular rate, Normal S1, Normal S2 Extremities: No edema General: Alert HEENT: Other (wearing cervical collar) Lungs: Clear to auscultation Neuro: Normal speech Psych/Mental Status: Mental status NL Skin: No rashes Assessment Assessment 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 off hctz 2. Metabolic encephalopathy resolved 3. CT cervical fracture with fracture of the odontoid with posterior displacement, treated with a cervical collar. 4. Diabetes mellitus type 2.. 5. 6. Hypertension. 7. Hyperlipidemia. 8. Dehydration resolved 9. Mild metabolic acidosis resolved Plan Plan of Care decrease iv normal saline PT and OT increase insulin SNF screen lab tomorrow anticipate dismissal tomorrow Comment Review of Relevant I have reviewed the following items jeannine (where applicable) has been applied. Labs Laboratory Tests Test 05/01/17 12:01 05/01/17 16:48 05/01/17 20:38 05/02/17 04:19 Glucose (Fingerstick) 167 mg/dL (70-99) 217 mg/dL (70-99) 134 mg/dL (70-99) Sodium Level 128 mmol/L (136-145) Potassium Level 4.1 mmol/L (3.5-5.1) Chloride Level 96 mmol/L (98-107) Carbon Dioxide Level 23 mmol/L (21-32) Anion Gap 9 (6-14) Blood Urea Nitrogen 15 mg/dL (8-26) Creatinine 0.7 mg/dL (0.7-1.3) Estimated GFR (Cockcroft-Gault) 106.9 Glucose Level 58 mg/dL (70-99) Calcium Level 8.7 mg/dL (8.5-10.1) Magnesium Level 2.2 mg/dL (1.8-2.4) Test 05/02/17 05:30 05/02/17 07:59 05/02/17 11:20 05/02/17 16:36 Glucose (Fingerstick) 47 mg/dL (70-99) 97 mg/dL (70-99) 274 mg/dL (70-99) 343 mg/dL (70-99) Test 05/02/17 20:55 05/03/17 05:15 05/03/17 07:45 Glucose (Fingerstick) 153 mg/dL (70-99) 276 mg/dL (70-99) Sodium Level 131 mmol/L (136-145) Potassium Level 4.6 mmol/L (3.5-5.1) Chloride Level 99 mmol/L (98-107) Carbon Dioxide Level 24 mmol/L (21-32) Anion Gap 8 (6-14) Blood Urea Nitrogen 13 mg/dL (8-26) Creatinine 0.9 mg/dL (0.7-1.3) Estimated GFR (Cockcroft-Gault) 80.0 Glucose Level 209 mg/dL (70-99) Calcium Level 8.5 mg/dL (8.5-10.1) Laboratory Tests Test 05/02/17 11:20 05/02/17 16:36 05/02/17 20:55 05/03/17 05:15 Glucose (Fingerstick) 274 mg/dL (70-99) 343 mg/dL (70-99) 153 mg/dL (70-99) Sodium Level 131 mmol/L (136-145) Potassium Level 4.6 mmol/L (3.5-5.1) Chloride Level 99 mmol/L (98-107) Carbon Dioxide Level 24 mmol/L (21-32) Anion Gap 8 (6-14) Blood Urea Nitrogen 13 mg/dL (8-26) Creatinine 0.9 mg/dL (0.7-1.3) Estimated GFR (Cockcroft-Gault) 80.0 Glucose Level 209 mg/dL (70-99) Calcium Level 8.5 mg/dL (8.5-10.1) Test 05/03/17 07:45 Glucose (Fingerstick) 276 mg/dL (70-99) Medications Current Medications Ondansetron HCl (Zofran) 4 mg PRN Q6HRS PRN IV NAUSEA/VOMITING; Start 04/29/17 at 16:00 Acetaminophen (Tylenol) 500 mg QID PO Last administered on 05/02/17 22:12; Start 04/29/17 at 17:00 Acetaminophen (Tylenol) 325 mg Q4HRS PRN PO MILD PAIN / TEMP; Start 04/29/17 at 16:00 Insulin Aspart (NovoLOG) 10 units TIDAC SQ Last administered on 04/30/17 12:25 ; Start 04/29/17 at 16:30; Stop 05/01/17 at 09:56; Status DC Insulin Detemir (Levemir) 10 units QHS SQ Last administered on 04/30/17 21:31 ; Start 04/29/17 at 21:00; Stop 05/01/17 at 09:56; Status DC Sodium Chloride 200 ml @ 40 mls/hr 1X ONCE IV Last administered on 04/29/17 16:48; Start 04/29/17 at 16:00; Stop 04/29/17 at 17:04; Status DC Sodium Chloride 1,000 ml @ 40 mls/hr Q24H IV Last administered on 05/02/17 19 :55; Start 04/29/17 at 21:00 Metformin HCl (Glucophage) 500 mg BIDWMEALS PO ; Start 04/29/17 at 17:00; Stop 04/29/17 at 17:00; Status DC Senna/Docusate Sodium (Senna Plus) 2 tab QHS PO Last administered on 05/02/17 22:12; Start 04/29/17 at 21:00 Clonidine HCl (Catapres) 0.1 mg Q6HRS PRN PO HYPERTENSION, SEE COMMENTS; Start 04/29/17 at 16:00 Oxymetazoline HCl (Afrin) 2 spray 1X ONCE NS Last administered on 04/29/17 16 :31; Start 04/29/17 at 16:15; Stop 04/29/17 at 16:16; Status DC Sodium Chloride 200 ml @ 40 mls/hr 1X ONCE IV ; Start 04/29/17 at 16:30; Stop 04/29/17 at 21:29; Status UNV Sodium Chloride 1,000 ml @ 75 mls/hr [id number] IV ; Start 04/29/17 at 16:30; Stop 04/30/17 at 08:49; Status DC Cetirizine HCl (ZyrTEC) 10 mg DAILY PO Last administered on 05/02/17 08:22; Start 04/29/17 at 17:00 Sodium Chloride 200 ml @ 40 mls/hr 1X ONCE IV Last administered on 04/29/17 17:08; Start 04/29/17 at 17:04; Stop 04/29/17 at 20:59; Status DC Metformin HCl (Glucophage) 500 mg BIDWMEALS PO Last administered on 05/02/17 16:58; Start 04/30/17 at 09:00 Losartan Potassium (Cozaar) 100 mg DAILY PO ; Start 04/30/17 at 09:00; Stop at 09:00; Status DC Losartan Potassium (Cozaar) 100 mg DAILY PO ; Start 04/30/17 at 09:00; Status UNV Losartan Potassium (Cozaar) 100 mg DAILY PO Last administered on 05/02/17 08: 22; Start 04/30/17 at 09:00 Fentanyl Citrate (Fentanyl 2ml Vial) 25 mcg PRN Q2HR PRN IV PAIN; Start at 04:15; Status Cancel Acetaminophen (Tylenol) 650 mg PRN Q6HRS PRN PO pain; Start 05/01/17 at 04:15; Status Cancel Ondansetron HCl (Zofran) 4 mg PRN Q6HRS PRN IV NAUSEA/VOMITING; Start 05/01/17 at 04:15; Status Cancel Prednisone (Prednisone) 60 mg DAILY PO ; Start 05/01/17 at 09:00; Status Cancel Pantoprazole Sodium (Protonix) 40 mg DAILYAC PO ; Start 05/01/17 at 07:30; Status Cancel Insulin Aspart (NovoLOG) 8 units TIDAC SQ Last administered on 05/01/17 17:36 ; Start 05/01/17 at 11:30; Stop 05/02/17 at 09:00; Status DC Insulin Detemir (Levemir) 6 units QHS SQ Last administered on 05/01/17 21:16; Start 05/01/17 at 21:00; Stop 05/02/17 at 09:00; Status DC Magnesium Sulfate/ Dextrose 50 ml @ 25 mls/hr 1X ONCE IV Last administered on 05/01/17 10:42; Start 05/01/17 at 10:00; Stop 05/01/17 at 11:59; Status DC Insulin Aspart (NovoLOG) 6 units TIDAC SQ Last administered on 05/02/17 17:05 ; Start 05/02/17 at 11:30; Stop 05/03/17 at 08:25; Status DC Insulin Detemir (Levemir) 4 units QHS SQ Last administered on 05/02/17 22:17; Start 05/02/17 at 21:00; Stop 05/03/17 at 08:25; Status DC Insulin Aspart (NovoLOG) 10 units TIDAC SQ ; Start 05/03/17 at 11:30; Status UNV Insulin Detemir (Levemir) 10 units QHS SQ ; Start 05/03/17 at 21:00; Status UNV Active Scripts Active Hydrochlorothiazide Tablet (Hydrochlorothiazide) 25 Mg Tablet 25 Mg PO DAILY 30 Days Tramadol Hcl 50 Mg Tablet 50 Mg PO PRN Q6HRS PRN 30 Days Novolog Flexpen (Insulin Aspart) 100 Unit/1 Ml Insuln.pen 12 Units SQ TIDAC 30 Days Levemir Flextouch (Insulin Detemir) 100 Unit/1 Ml Insuln.pen 14 Units SQ QHS 30 Days Reported Multivitamins (Multivitamin) 1 Each Tablet 1 Tab PO DAILY Losartan Potassium 25 Mg Tablet 100 Mg PO DAILY Lovastatin 40 Mg Tablet 1 Tab PO HS Metformin Hcl 500 Mg Tablet 1 Tab PO BID Vitals/I & O Vital Sign - Last 24 Hours 05/02/17 05/02/17 05/02/17 05/02/17 11:00 15:00 20:00 20:34 Temp 98.0 97.6 98.5 98.0 97.6 98.5 Pulse 66 74 74 Resp 16 18 20 B/P (MAP) 142/70 (94) 136/68 (90) 128/54 (78) Pulse Ox 98 98 97 O2 Delivery Room Air Room Air Room Air Room Air 05/02/17 05/03/17 05/03/17 23:13 03:14 07:44 Temp 97.8 98.3 97.1 97.8 98.3 97.1 Pulse 66 76 69 Resp 20 20 20 B/P (MAP) 132/58 (82) 157/56 (89) 153/70 (97) Pulse Ox 97 97 98 O2 Delivery Room Air Room Air Room Air Intake and Output 05/02/17 05/02/17 05/03/17 15:00 23:00 07:00 Intake Total 200 ml 1090 ml 290 ml Output Total 840 ml Balance 200 ml 1090 ml -550 ml CHARLY VILLARREAL MD May 03, 2017 08:29
[2017-05-03] MEDS: metFORMIN 500 MG TABLET PO SCH ×2 (08:32→17:55)
[2017-05-03] MEDS: CETIRIZINE HCL 10 MG TABLET. PO SCH (08:32)
[2017-05-03] MEDS: ACETAMINOPHEN 500 MG TABLET PO SCH ×4 (08:32→21:20)
[2017-05-03] MEDS: INSULIN ASPART 300 UNITS/3 ML INSULN.PEN SQ SCH ×3 (08:39→18:03)
[2017-05-03] MEDS: LOSARTAN POTASSIUM 50 MG TABLET. PO SCH (10:06)
[2017-05-03 10:57] VITALS: BP 146/69
--- NOTE | 2017-05-03 11:53 | PDOC ---
SUBJECTIVE ROS Hyponatremia Doign and feeling much better OBJECTIVE Vital Signs Vital Signs Date Time Temp Pulse Resp B/P (MAP) Pulse Ox O2 Delivery O2 Flow Rate FiO2 05/03/17 10:57 97.9 70 20 146/69 (94) 96 Room Air 97.9 I & 0 Intake and Output 05/03/17 07:00 Intake Total 1580 ml Output Total 840 ml Balance 740 ml Intake Oral 730 ml IV Total 850 ml Output Urine Total 840 ml # Voids 1 PHYSICAL EXAM Physical Exam General Appearance: Awake: Alert Oriented x 2-3 Neck: No JVD or JVP Chest: CTA [place] Heart: S1 S2 Abdomen - Soft NTND Extremities - No Edema DIAGNOSIS/ASSESSMENT Assessment & Plan HYPOVOLEMIC HYPONATREMIA-BETTER WITH NaCl. Ct same for now. CONT TO HOLD DIURETICS until able to take PO adequately Problems: COMMENT/RELEVANT DATA Meds Current Medications Medications (Trade) Dose Ordered Sig/Adeline Start Time Stop Time Status Last Admin Dose Admin Acetaminophen (Tylenol) 650 mg PRN Q6HRS PRN 05/01/17 04:15 Cancel Cetirizine HCl (ZyrTEC) 10 mg DAILY 04/29/17 17:00 05/03/17 08:32 10 MG Clonidine HCl (Catapres) 0.1 mg Q6HRS PRN 04/29/17 16:00 Fentanyl Citrate (Fentanyl 2ml Vial) 25 mcg PRN Q2HR PRN 05/01/17 04:15 Cancel Insulin Aspart (NovoLOG) 10 units TIDAC 05/03/17 08:34 05/03/17 08:39 10 UNITS Insulin Detemir (Levemir) 10 units QHS 05/03/17 21:00 Losartan Potassium (Cozaar) 100 mg DAILY 04/30/17 09:00 05/03/17 10:06 100 MG Magnesium Sulfate/ Dextrose 50 ml @ 25 mls/hr 1X ONCE 05/01/17 10:00 05/01/17 11:59 DC 05/01/17 10:42 25 MLS/HR Metformin HCl (Glucophage) 500 mg BIDWMEALS 04/30/17 09:00 05/03/17 08:32 500 MG Ondansetron HCl (Zofran) 4 mg PRN Q6HRS PRN 05/01/17 04:15 Cancel Oxymetazoline HCl (Afrin) 2 spray 1X ONCE 04/29/17 16:15 04/29/17 16:16 DC 04/29/17 16:31 2 SPRAY Pantoprazole Sodium (Protonix) 40 mg DAILYAC 05/01/17 07:30 Cancel Prednisone (Prednisone) 60 mg DAILY 05/01/17 09:00 Cancel Senna/Docusate Sodium (Senna Plus) 2 tab QHS 04/29/17 21:00 05/02/17 22:12 2 TAB Sodium Chloride 200 ml @ 40 mls/hr 1X ONCE 04/29/17 17:04 04/29/17 20:59 DC 04/29/17 17:08 40 MLS/HR Lab Laboratory Tests Test 05/02/17 16:36 05/02/17 20:55 05/03/17 05:15 05/03/17 07:45 Glucose (Fingerstick) 343 mg/dL (70-99) 153 mg/dL (70-99) 276 mg/dL (70-99) Sodium Level 131 mmol/L (136-145) Potassium Level 4.6 mmol/L (3.5-5.1) Chloride Level 99 mmol/L (98-107) Carbon Dioxide Level 24 mmol/L (21-32) Anion Gap 8 (6-14) Blood Urea Nitrogen 13 mg/dL (8-26) Creatinine 0.9 mg/dL (0.7-1.3) Estimated GFR (Cockcroft-Gault) 80.0 Glucose Level 209 mg/dL (70-99) Calcium Level 8.5 mg/dL (8.5-10.1) THU NOVAK MD May 03, 2017 11:53
[2017-05-03] MEDS: IV NORMAL SALINE 1000ML BAG 1,000 ML IV SCH (12:30)
[2017-05-03 15:30] VITALS: BP 110/58
[2017-05-03 19:15] VITALS: BP 113/46
[2017-05-03] MEDS ORDERED: INSULIN DETEMIR 300 UNITS/3 ML INSULN.PEN. SQ SCH (21:00)
[2017-05-03] MEDS: SENNOSIDES/DOCUSATE 8.6/50MG TABLET. PO SCH (21:20)
[2017-05-03 23:20] VITALS: BP 143/60
[2017-05-04 03:20] VITALS: BP 153/65
[2017-05-04 07:00] VITALS: BP 142/63
[2017-05-04 07:02] LABS: CALCIUM 8.6 mg/dL (8.5-10.1); GFR 70.8; POTASSIUM 4.4 mmol/L (3.5-5.1)
[2017-05-04] MEDS: metFORMIN 500 MG TABLET PO SCH (08:08)
[2017-05-04] MEDS: ACETAMINOPHEN 500 MG TABLET PO SCH ×2 (08:08→12:11)
[2017-05-04] MEDS: CETIRIZINE HCL 10 MG TABLET. PO SCH (08:08)
[2017-05-04] MEDS: LOSARTAN POTASSIUM 50 MG TABLET. PO SCH (08:09)
[2017-05-04] MEDS: INSULIN ASPART 300 UNITS/3 ML INSULN.PEN SQ SCH ×2 (08:14→12:15)
--- NOTE | 2017-05-04 08:32 | PDOC ---
PROGRESS NOTES Subjective Subjective some mild neck pain . serum sodium 137. ready for dismissal. Objective Objective Vital Signs Date Time Temp Pulse Resp B/P (MAP) Pulse Ox O2 Delivery O2 Flow Rate FiO2 05/04/17 08:09 64 142/63 05/04/17 07:43 Room Air 05/04/17 07:00 97.8 16 96 97.8 Intake and Output 05/04/17 07:00 Intake Total 100 ml Output Total 1100 ml Balance -1000 ml Intake Oral 100 ml Output Urine Total 1100 ml # Bowel Movements 1 Physical Exam Abdomen: Soft Heart: Regular rate, Normal S1, Normal S2 Extremities: No edema General: Alert HEENT: Other (wearing cervical collar) Lungs: Clear to auscultation Neuro: Normal speech Psych/Mental Status: Mental status NL Skin: No rashes Assessment Assessment Severe hyponatremia. resolved due to SIADH and dehydration from inadequate fluids. off hctz 2. Metabolic encephalopathy resolved 3. CT cervical fracture with fracture of the odontoid with posterior displacement, treated with a cervical collar. 4. Diabetes mellitus type 2.. 5. 6. Hypertension. 7. Hyperlipidemia. 8. Dehydration resolved 9. Mild metabolic acidosis resolved Plan Plan of Care d/c iv fluids dismiss today with home health Comment Review of Relevant I have reviewed the following items jeannine (where applicable) has been applied. Labs Laboratory Tests Test 05/02/17 11:20 05/02/17 16:36 05/02/17 20:55 05/03/17 05:15 Glucose (Fingerstick) 274 mg/dL (70-99) 343 mg/dL (70-99) 153 mg/dL (70-99) Sodium Level 131 mmol/L (136-145) Potassium Level 4.6 mmol/L (3.5-5.1) Chloride Level 99 mmol/L (98-107) Carbon Dioxide Level 24 mmol/L (21-32) Anion Gap 8 (6-14) Blood Urea Nitrogen 13 mg/dL (8-26) Creatinine 0.9 mg/dL (0.7-1.3) Estimated GFR (Cockcroft-Gault) 80.0 Glucose Level 209 mg/dL (70-99) Calcium Level 8.5 mg/dL (8.5-10.1) Test 05/03/17 07:45 05/03/17 11:45 05/03/17 16:57 05/03/17 21:21 Glucose (Fingerstick) 276 mg/dL (70-99) 232 mg/dL (70-99) 176 mg/dL (70-99) 110 mg/dL (70-99) Test 05/04/17 04:35 05/04/17 07:30 Sodium Level 137 mmol/L (136-145) Potassium Level 4.4 mmol/L (3.5-5.1) Chloride Level 102 mmol/L (98-107) Carbon Dioxide Level 26 mmol/L (21-32) Anion Gap 9 (6-14) Blood Urea Nitrogen 16 mg/dL (8-26) Creatinine 1.0 mg/dL (0.7-1.3) Estimated GFR (Cockcroft-Gault) 70.8 Glucose Level 98 mg/dL (70-99) Calcium Level 8.6 mg/dL (8.5-10.1) Glucose (Fingerstick) 122 mg/dL (70-99) Laboratory Tests Test 05/03/17 11:45 05/03/17 16:57 05/03/17 21:21 05/04/17 04:35 Glucose (Fingerstick) 232 mg/dL (70-99) 176 mg/dL (70-99) 110 mg/dL (70-99) Sodium Level 137 mmol/L (136-145) Potassium Level 4.4 mmol/L (3.5-5.1) Chloride Level 102 mmol/L (98-107) Carbon Dioxide Level 26 mmol/L (21-32) Anion Gap 9 (6-14) Blood Urea Nitrogen 16 mg/dL (8-26) Creatinine 1.0 mg/dL (0.7-1.3) Estimated GFR (Cockcroft-Gault) 70.8 Glucose Level 98 mg/dL (70-99) Calcium Level 8.6 mg/dL (8.5-10.1) Test 05/04/17 07:30 Glucose (Fingerstick) 122 mg/dL (70-99) Medications Current Medications Ondansetron HCl (Zofran) 4 mg PRN Q6HRS PRN IV NAUSEA/VOMITING; Start 04/29/17 at 16:00 Acetaminophen (Tylenol) 500 mg QID PO Last administered on 05/04/17t 08:08; Start 04/29/17 at 17:00 Acetaminophen (Tylenol) 325 mg Q4HRS PRN PO MILD PAIN / TEMP; Start 04/29/17 at 16:00 Insulin Aspart (NovoLOG) 10 units TIDAC SQ Last administered on 04/30/17 12:25 ; Start 04/29/17 at 16:30; Stop 05/01/17 at 09:56; Status DC Insulin Detemir (Levemir) 10 units QHS SQ Last administered on 04/30/17 21:31 ; Start 04/29/17 at 21:00; Stop 05/01/17 at 09:56; Status DC Sodium Chloride 200 ml @ 40 mls/hr 1X ONCE IV Last administered on 04/29/17 16:48; Start 04/29/17 at 16:00; Stop 04/29/17 at 17:04; Status DC Sodium Chloride 1,000 ml @ 40 mls/hr Q24H IV Last administered on 05/03/17 12 :30; Start 04/29/17 at 21:00 Metformin HCl (Glucophage) 500 mg BIDWMEALS PO ; Start 04/29/17 at 17:00; Stop 04/29/17 at 17:00; Status DC Senna/Docusate Sodium (Senna Plus) 2 tab QHS PO Last administered on 05/03/17 21:20; Start 04/29/17 at 21:00 Clonidine HCl (Catapres) 0.1 mg Q6HRS PRN PO HYPERTENSION, SEE COMMENTS; Start 04/29/17 at 16:00 Oxymetazoline HCl (Afrin) 2 spray 1X ONCE NS Last administered on 04/29/17 16 :31; Start 04/29/17 at 16:15; Stop 04/29/17 at 16:16; Status DC Sodium Chloride 200 ml @ 40 mls/hr 1X ONCE IV ; Start 04/29/17 at 16:30; Stop 04/29/17 at 21:29; Status UNV Sodium Chloride 1,000 ml @ 75 mls/hr [id number] IV ; Start 04/29/17 at 16:30; Stop 04/30/17 at 08:49; Status DC Cetirizine HCl (ZyrTEC) 10 mg DAILY PO Last administered on 05/04/17 08:08; Start 04/29/17 at 17:00 Sodium Chloride 200 ml @ 40 mls/hr 1X ONCE IV Last administered on 04/29/17 17:08; Start 04/29/17 at 17:04; Stop 04/29/17 at 20:59; Status DC Metformin HCl (Glucophage) 500 mg BIDWMEALS PO Last administered on 05/04/17 08:08; Start 04/30/17 at 09:00 Losartan Potassium (Cozaar) 100 mg DAILY PO ; Start 04/30/17 at 09:00; Stop at 09:00; Status DC Losartan Potassium (Cozaar) 100 mg DAILY PO ; Start 04/30/17 at 09:00; Status UNV Losartan Potassium (Cozaar) 100 mg DAILY PO Last administered on 05/04/17 08: 09; Start 04/30/17 at 09:00 Fentanyl Citrate (Fentanyl 2ml Vial) 25 mcg PRN Q2HR PRN IV PAIN; Start at 04:15; Status Cancel Acetaminophen (Tylenol) 650 mg PRN Q6HRS PRN PO pain; Start 05/01/17 at 04:15; Status Cancel Ondansetron HCl (Zofran) 4 mg PRN Q6HRS PRN IV NAUSEA/VOMITING; Start 05/01/17 at 04:15; Status Cancel Prednisone (Prednisone) 60 mg DAILY PO ; Start 05/01/17 at 09:00; Status Cancel Pantoprazole Sodium (Protonix) 40 mg DAILYAC PO ; Start 05/01/17 at 07:30; Status Cancel Insulin Aspart (NovoLOG) 8 units TIDAC SQ Last administered on 05/01/17 17:36 ; Start 05/01/17 at 11:30; Stop 05/02/17 at 09:00; Status DC Insulin Detemir (Levemir) 6 units QHS SQ Last administered on 05/01/17 21:16; Start 05/01/17 at 21:00; Stop 05/02/17 at 09:00; Status DC Magnesium Sulfate/ Dextrose 50 ml @ 25 mls/hr 1X ONCE IV Last administered on 05/01/17 10:42; Start 05/01/17 at 10:00; Stop 05/01/17 at 11:59; Status DC Insulin Aspart (NovoLOG) 6 units TIDAC SQ Last administered on 05/02/17 17:05 ; Start 05/02/17 at 11:30; Stop 05/03/17 at 08:25; Status DC Insulin Detemir (Levemir) 4 units QHS SQ Last administered on 05/02/17 22:17; Start 05/02/17 at 21:00; Stop 05/03/17 at 08:25; Status DC Insulin Aspart (NovoLOG) 10 units TIDAC SQ Last administered on 05/04/17 08:14 ; Start 05/03/17 at 08:34 Insulin Detemir (Levemir) 10 units QHS SQ Last administered on 05/03/17 21:27 ; Start 05/03/17 at 21:00 Active Scripts Active Hydrochlorothiazide Tablet (Hydrochlorothiazide) 25 Mg Tablet 25 Mg PO DAILY 30 Days Tramadol Hcl 50 Mg Tablet 50 Mg PO PRN Q6HRS PRN 30 Days Novolog Flexpen (Insulin Aspart) 100 Unit/1 Ml Insuln.pen 12 Units SQ TIDAC 30 Days Levemir Flextouch (Insulin Detemir) 100 Unit/1 Ml Insuln.pen 14 Units SQ QHS 30 Days Reported Multivitamins (Multivitamin) 1 Each Tablet 1 Tab PO DAILY Losartan Potassium 25 Mg Tablet 100 Mg PO DAILY Lovastatin 40 Mg Tablet 1 Tab PO HS Metformin Hcl 500 Mg Tablet 1 Tab PO BID Vitals/I & O Vital Sign - Last 24 Hours 05/03/17 05/03/17 05/03/17 05/03/17 10:06 10:57 15:30 19:15 Temp 97.9 97.7 97.6 97.9 97.7 97.6 Pulse 69 70 73 75 Resp 20 20 18 B/P (MAP) 153/70 146/69 (94) 110/58 (75) 113/46 (68) Pulse Ox 96 97 98 O2 Delivery Room Air Room Air Room Air 05/03/17 05/03/17 05/04/17 05/04/17 20:00 23:20 03:20 07:00 Temp 98.2 98.0 97.8 98.2 98.0 97.8 Pulse 65 63 64 Resp 18 18 16 B/P (MAP) 143/60 (87) 153/65 (94) 142/63 (89) Pulse Ox 97 99 96 O2 Delivery Room Air Room Air Room Air Room Air 05/04/17 05/04/17 07:43 08:09 Pulse 64 B/P (MAP) 142/63 O2 Delivery Room Air Intake and Output 05/03/17 05/03/17 05/04/17 15:00 23:00 07:00 Intake Total 100 ml Output Total 400 ml 700 ml Balance -400 ml -600 ml CHARLY VILLARREAL MD May 04, 2017 08:32
--- NOTE | 2017-05-04 08:37 | DISCH ---
DISCHARGE INSTRUCTIONS Condition on Discharge Condition on Discharge: Stable Activity After Discharge Activity Instructions for Disc: Resume previous activity Diet after Discharge Diet after Discharge: Diabetic No Calorie Level Contacting the DRIrving after DC Call your doctor for: If your condition worsens Follow-Up Follow up with: dr. villarreal next week CHARLY VILLARREAL MD May 04, 2017 08:37
[2017-05-04] MEDS ORDERED: INSU100I17 SQ (08:40)
[2017-05-04] MEDS ORDERED: SENN-22 PO (08:40)
[2017-05-04] MEDS ORDERED: INSU100I27 SQ (08:40)
[2017-05-04] MEDS ORDERED: ACET500T55 PO (08:40)
--- NOTE | 2017-05-04 08:44 | PDOC ---
Provider Note Provider Note discharge summary dictated # [id number] CHARLY VILLARREAL MD May 04, 2017 08:44
[2017-05-04 11:00] VITALS: BP 115/51
--- NOTE | 2017-05-04 11:26 | PDOC ---
SUBJECTIVE ROS Hyponatremia OBJECTIVE Vital Signs Vital Signs Date Time Temp Pulse Resp B/P (MAP) Pulse Ox O2 Delivery O2 Flow Rate FiO2 05/04/17 11:00 97.9 84 18 115/51 (72) 98 Room Air 97.9 I & 0 Intake and Output 05/04/17 06:59 Intake Total 100 ml Output Total 1100 ml Balance -1000 ml Intake Oral 100 ml Output Urine Total 1100 ml # Bowel Movements 1 PHYSICAL EXAM Physical Exam General Appearance: Awake: Alert Oriented x 2-3 Neck: No JVD or JVP Chest: CTA [place] Heart: S1 S2 Abdomen - Soft NTND Extremities - No Edema DIAGNOSIS/ASSESSMENT Assessment & Plan HYPOVOLEMIC HYPONATREMIA-BETTER WITH NaCl. Ct same for now. CONT TO HOLD DIURETICS until able to take PO adequately OK to D/c from renal standoint COMMENT/RELEVANT DATA Meds Current Medications Medications (Trade) Dose Ordered Sig/Adeline Start Time Stop Time Status Last Admin Dose Admin Acetaminophen (Tylenol) 650 mg PRN Q6HRS PRN 05/01/17 04:15 Cancel Cetirizine HCl (ZyrTEC) 10 mg DAILY 04/29/17 17:00 05/04/17 08:08 10 MG Clonidine HCl (Catapres) 0.1 mg Q6HRS PRN 04/29/17 16:00 Fentanyl Citrate (Fentanyl 2ml Vial) 25 mcg PRN Q2HR PRN 05/01/17 04:15 Cancel Insulin Aspart (NovoLOG) 10 units TIDAC 05/03/17 08:34 05/04/17 08:14 10 UNITS Insulin Detemir (Levemir) 10 units QHS 05/03/17 21:00 05/03/17 21:27 10 UNITS Losartan Potassium (Cozaar) 100 mg DAILY 04/30/17 09:00 05/04/17 08:09 100 MG Magnesium Sulfate/ Dextrose 50 ml @ 25 mls/hr 1X ONCE 05/01/17 10:00 05/01/17 11:59 DC 05/01/17 10:42 25 MLS/HR Metformin HCl (Glucophage) 500 mg BIDWMEALS 04/30/17 09:00 05/04/17 08:08 500 MG Ondansetron HCl (Zofran) 4 mg PRN Q6HRS PRN 05/01/17 04:15 Cancel Oxymetazoline HCl (Afrin) 2 spray 1X ONCE 04/29/17 16:15 04/29/17 16:16 DC 04/29/17 16:31 2 SPRAY Pantoprazole Sodium (Protonix) 40 mg DAILYAC 05/01/17 07:30 Cancel Prednisone (Prednisone) 60 mg DAILY 05/01/17 09:00 Cancel Senna/Docusate Sodium (Senna Plus) 2 tab QHS 04/29/17 21:00 05/03/17 21:20 2 TAB Sodium Chloride 200 ml @ 40 mls/hr 1X ONCE 04/29/17 17:04 04/29/17 20:59 DC 04/29/17 17:08 40 MLS/HR Lab Laboratory Tests Test 05/03/17 11:45 05/03/17 16:57 05/03/17 21:21 05/04/17 04:35 Glucose (Fingerstick) 232 mg/dL (70-99) 176 mg/dL (70-99) 110 mg/dL (70-99) Sodium Level 137 mmol/L (136-145) Potassium Level 4.4 mmol/L (3.5-5.1) Chloride Level 102 mmol/L (98-107) Carbon Dioxide Level 26 mmol/L (21-32) Anion Gap 9 (6-14) Blood Urea Nitrogen 16 mg/dL (8-26) Creatinine 1.0 mg/dL (0.7-1.3) Estimated GFR (Cockcroft-Gault) 70.8 Glucose Level 98 mg/dL (70-99) Calcium Level 8.6 mg/dL (8.5-10.1) Test 05/04/17 07:30 Glucose (Fingerstick) 122 mg/dL (70-99) THU NOVAK MD May 04, 2017 11:26
--- NOTE | 2017-05-04 20:18 | DS ---
DATE OF DISCHARGE: 05/04/2017 CONSULTANTS: Dr. Lafleur and consult for Dr. Rose was written, but he was never seen. FINAL DIAGNOSES: 1. 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 2. C2 cervical fracture with posterior displacement of the odontoid process. 3. Metabolic encephalopathy, resolved. 4. Diabetes mellitus type 2. 5. Hypertension. 6. Hyperlipidemia. 7. Depression. 8. Mild metabolic acidosis, resolved. HOSPITAL COURSE: The patient is an 86-year-old white male who was recently dismissed from [facility] after sustaining a C2 cervical fracture involving a fracture of the odontoid with posterior displacement treated with cervical collar secondary to a fall. He has diabetes mellitus type 2, hypertension, hyperlipidemia. He was taking tramadol 50 mg every 6 hours p.r.n. and was ambulating with a walker at home. In the last 2 days he has been sleeping a lot, has been eating and drinking very much, was sent to the [facility] Emergency Room where his serum sodium was low at 114, BUN was 30, creatinine was 1.1 with a mild metabolic acidosis with serum sodium carbonate of 18 and the blood sugar of 378. The patient was treated with hypertonic saline for 200 mL and then switched to normal saline and his hydrochlorothiazide was discontinued and his BUN and creatinine and serum sodium normalized. Seen in consultation by Dr. Lafleur for Nephrology. Metabolic acidosis also resumed. He was resumed on metformin. Insulin dose was adjusted with improved blood sugar control. Consult for Dr. Rose was written. We did see Dr. Rose in the office like a day or two before admission and he is to be treated conservatively. Dr. Zambrano is out of his insurance network, so he will be following up with a neurosurgeon at [facility] as an outpatient. He will be dismissed to home with home health and he was told to make an appointment to see Dr. De La Torre in the office next week and wear cervical collar at all times. He will be dismissed on losartan 100 mg every day, lovastatin 40 mg every day, metformin 500 mg b.i.d., NovoLog insulin 10 units before meals t.i.d., Lantus insulin 10 units at bedtime and Tylenol 500 mg q.i.d. and he will follow up with Dr. De La Torre next week and he was told to discontinue his hydrochlorothiazide. He will check his blood sugars before meals t.i.d. and bedtime and also be dismissed on Senokot-S two tablets at bedtime. CHARLY DE LA TORRE MD DR: JESSICA/rachel JOB#: [id number] / [id number]
== END 2017-05-04 13:05 | disposition home health service (06) | DRG 643 ==
LOC: ER 13:35 → 1 WEST ICU 15:20 → 6 SOUTH 04-30 10:37
PROVIDERS: ADMIT Internal Medicine; ATTEND Internal Medicine
DX: E22.2 Syndrome of inappropriate secretion of antidiuretic hormone (principal); G93.41 Metabolic encephalopathy; E87.2 Acidosis; E87.1 Hypo-osmolality and hyponatremia; E11.649 Type 2 diabetes mellitus with hypoglycemia without coma; E11.65 Type 2 diabetes mellitus with hyperglycemia; E78.00 Pure hypercholesterolemia, unspecified; E78.5 Hyperlipidemia, unspecified; E86.0 Dehydration; E86.1 Hypovolemia; F32.9 Major depressive disorder, single episode, unspecified; H40.9 Unspecified glaucoma; K57.90 Diverticulosis of intestine, part unspecified, without perforation or abscess without bleeding; I10 Essential (primary) hypertension; K59.00 Constipation, unspecified; Z79.84 Long term (current) use of oral hypoglycemic drugs; Z79.899 Other long term (current) drug therapy; Z85.46 Personal history of malignant neoplasm of prostate; Z92.3 Personal history of irradiation; Z88.2 Allergy status to sulfonamides; Z88.1 Allergy status to other antibiotic agents; Z88.8 Allergy status to other drugs, medicaments and biological substances; Z90.89 Acquired absence of other organs; T50.2X5A Adverse effect of carbonic-anhydrase inhibitors, benzothiadiazides and other diuretics, initial encounter
CPT/HCPCS: 36415; 71010; 72040; 80048; 80053; 81001; 82140; 82436; 82962; 83735; 83930; 83935; 84100; 84133; 84300; 85007; 85027; 87641; 93005; 96360; J1815; J3490; J7030; J7060; 97110; 97116; 97530; 97535; 99285-25

== ENCOUNTER → 2017-10-14 | Outpatient (CLI) | payer BC ==
[~2017-10-14] MED LIST changes: +ACET500T55 PO; +ASPI-630 PO; +SENN-22 PO
--- NOTE | 2017-10-14 09:42 | RAD ---
Bilateral lower extremity venous ultrasound, 10/14/2017: History: Bilateral leg swelling Duplex evaluation of the deep veins in the lower extremities was performed including grayscale, color-flow and spectral Doppler analysis. The femoral and popliteal veins demonstrate normal compressibility and normal responses to distal augmentation maneuvers. Color imaging of those vessels shows no evidence of intraluminal clot. The visualized deep veins in both calves are patent. IMPRESSION: There is no sonographic evidence of deep vein thrombosis in either lower extremity.
== END | disposition home or self-care (01) ==
LOC: US 08:49
PROVIDERS: ATTEND Internal Medicine
DX: M79.89 Other specified soft tissue disorders (principal)
CPT/HCPCS: 93970

== ENCOUNTER → 2018-11-09 | Outpatient (CLI) | payer BC ==
[~2018-11-09] MED LIST changes: +HYDR-2145 PO; -HYDR25TA9 PO; -LOSA25TA4 PO; +LOSA25TA54 PO; +METF500T16 PO; -METF500T4 PO
--- NOTE | 2018-11-09 10:01 | RAD ---
RENAL COMPLETE BILATERAL: 11/09/2018 7:54 AM Indication: 88 years old Male. Stage III chronic kidney disease. Comparison: None. FINDINGS: Sonographic evaluation of the kidneys was performed utilizing grayscale and color Doppler. Right kidney: Size: 9.9 x 4.6 x 3.5cm. Collecting System: No hydronephrosis. No renal calculi detected. Parenchyma: Normal echotexture and morphology. No focal contour deforming renal mass. Left kidney: Size: 10.6 x 5.4 x 5.5cm. Collecting System: No hydronephrosis. No renal calculi detected. Parenchyma: Normal echotexture and morphology. No focal contour deforming renal mass. Urinary bladder: Prevoid volume of 52.2 cc. No significant postvoid residual. IMPRESSION: No evidence for obstructive uropathy. Electronically signed by: Mackenzie Nobles MD (11/09/2018 9:57 AM) [facility]
== END | disposition home or self-care (01) ==
LOC: US 09:33
PROVIDERS: ATTEND Internal Medicine Nephrology
DX: I12.9 Hypertensive chronic kidney disease with stage 1 through stage 4 chronic kidney disease, or unspecified chronic kidney disease (principal); E11.22 Type 2 diabetes mellitus with diabetic chronic kidney disease; N18.3 Chronic kidney disease, stage 3 (moderate)
CPT/HCPCS: 76770

== ENCOUNTER 2019-01-20 11:52 | Emergency (ER) | payer BC ==
[~2019-01-20] VITALS: Ht 170.2 cm; Wt 68.0 kg
--- NOTE | 2019-01-20 13:07 | RAD ---
PQRS Compliance statement: One or more of the following individualized dose reduction techniques were utilized for this examination: 1. Automated exposure control. 2. Adjustment of the mA and/or kV according to patient size. 3. Use of iterative reconstruction technique. Indication:ct head and c spine due to S/P FALL TECHNIQUE: CT head without IV contrast COMPARISON:04/22/2017 FINDINGS: No pathologic extra-axial or intra-axial fluid collection. Mild diffuse atrophy. No acute intracranial bleed. The ventricles and basal cisterns are within normal limits. No focal loss of mcfarlane-white differentiation. No large scalp hematoma. Orbits within normal limits. No acute calvarial fracture. Visualized paranasal sinuses and mastoid air cells are clear. IMPRESSION: No acute intracranial process. Indication:ct head and c spine due to S/P FALL TECHNIQUE: CT of the cervical spine without IV contrast with multiplanar reformats. COMPARISON:04/22/2017 FINDINGS: Chronic fracture is seen of the odontoid process with posterior callus formation and improved alignment when compared to previous exam. Atlantoaxial joint is not widened. No compression deformity. Facet joints are in normal anatomic alignment. Multilevel intervertebral disc space narrowing is seen with endplate sclerosis. The visualized soft tissues through the neck are within normal limits. Visualized lungs are clear. No acute fractures. IMPRESSION: 1. 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 No acute fractures. 2. Multilevel advanced degenerative disc disease. Electronically signed by: Cameron Timmons DO (01/20/2019 1:04 PM) [id number]
--- NOTE | 2019-01-20 13:24 | PHYS DOC ---
Past Medical History Past Medical History: Diabetes-Type II, High Cholesterol, Hypertension Additional Past Medical Histor: C-2 fx Past Surgical History: Tonsillectomy, Other Additional Past Surgical Histo: Torn ACL Alcohol Use: Rarely Drug Use: None Adult General Chief Complaint Chief Complaint: HEAD INJURY/TRAUMA HPI HPI Patient is a 88 year old male with a history of diabetes type 2, hypertension, high cholesterol, previous C2 fracture, who presents to the ED today complaining of posterior head and neck pain rated at 2 out of 10 that began prior to coming to the ED. Patient states he was trying to wash his hair, he states in an effort to place the shampoo back to where it belongs he turned wrong, slipped and fell. Patient denies any loss of consciousness, he states he hit the back of his head on the bathtub. Patient denies being on any blood thinners Review of Systems Review of Systems Constitutional: Denies fever or chills [] Eyes: Denies change in visual acuity, redness, or eye pain [] HENT: Denies nasal congestion or sore throat [] Respiratory: Denies cough or shortness of breath [] Cardiovascular: No additional information not addressed in HPI [] GI: Denies abdominal pain, nausea, vomiting, bloody stools or diarrhea [] : Denies dysuria or hematuria [] Musculoskeletal: Reports neck pain Integument: Denies rash or skin lesions [] Neurologic: Reports posterior head pain. Denies headache, focal weakness or sensory changes [] All other systems were reviewed and found to be within normal limits, except as documented in this note. Allergies Allergies Allergies Coded Allergies Type Severity Reaction Last Updated Verified Cephalosporins Allergy Intermediate 05/04/16 Yes Sulfa (Sulfonamide Antibiotics) Allergy Intermediate 05/04/16 Yes cephalexin Allergy Intermediate 04/22/17 Yes clindamycin Allergy Intermediate 05/04/16 Yes doxycycline Allergy Intermediate 05/04/16 Yes sulfamethoxazole Allergy Intermediate 04/22/17 Yes trimethoprim Allergy Intermediate 04/22/17 Yes Physical Exam Physical Exam Constitutional: Well developed, well nourished, no acute distress, non-toxic appearance. [] HENT: Normocephalic, atraumatic, bilateral external ears normal, oropharynx moist, no oral exudates, nose normal. [] Eyes: PERRLA, EOMI, conjunctiva normal, no discharge. [] Neck: Normal range of motion, step-off noted at C2, patient states this is from a previous C2 fracture, there is mild tenderness to the area. Supple, no stridor. Cardiovascular:Heart rate regular rhythm, no murmur [] Lungs & Thorax: Bilateral breath sounds clear to auscultation [] Abdomen: Bowel sounds normal, soft, no tenderness, no masses, no pulsatile masses. [] Skin: Warm, dry, no erythema, no rash. [] Back: No tenderness, no CVA tenderness. [] Extremities: No tenderness, no cyanosis, no clubbing, ROM intact, no edema. [] Neurologic: Alert and oriented X 3, normal motor function, normal sensory function, no focal deficits noted. Cranial nerves II through XII intact Psychologic: Affect normal, judgement normal, mood normal. [] Current Patient Data Vital Signs Vital Signs Date Time Temp Pulse Resp B/P (MAP) Pulse Ox O2 Delivery O2 Flow Rate FiO2 01/20/19 12:00 97.8 60 18 179/74 (109) 99 Room Air 97.8 EKG EKG [] Radiology/Procedures Radiology/Procedures []PROCEDURE: CT HEAD AND CERVICAL SPINE WO PQRS Compliance statement: One or more of the following individualized dose reduction techniques were utilized for this examination: 1. Automated exposure control. 2. Adjustment of the mA and/or kV according to patient size. 3. Use of iterative reconstruction technique. Indication:ct head and c spine due to S/P FALL TECHNIQUE: CT head without IV contrast COMPARISON:04/22/2017 FINDINGS: No pathologic extra-axial or intra-axial fluid collection. Mild diffuse atrophy. No acute intracranial bleed. The ventricles and basal cisterns are within normal limits. No focal loss of mcfarlane-white differentiation. No large scalp hematoma. Orbits within normal limits. No acute calvarial fracture. Visualized paranasal sinuses and mastoid air cells are clear. IMPRESSION: No acute intracranial process. Indication:ct head and c spine due to S/P FALL TECHNIQUE: CT of the cervical spine without IV contrast with multiplanar reformats. COMPARISON:04/22/2017 FINDINGS: Chronic fracture is seen of the odontoid process with posterior callus formation and improved alignment when compared to previous exam. Atlantoaxial joint is not widened. No compression deformity. Facet joints are in normal anatomic alignment. Multilevel intervertebral disc space narrowing is seen with endplate sclerosis. The visualized soft tissues through the neck are within normal limits. Visualized lungs are clear. No acute fractures. IMPRESSION: 1. 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 No acute fractures. 2. Multilevel advanced degenerative disc disease. Electronically signed by: Cameron Timmons DO (01/20/2019 1:04 PM) [id number] DICTATED and SIGNED BY: CAMERON TIMMONS DO DATE: 01/20/19 1304 Course & Med Decision Making Course & Med Decision Making Pertinent Labs and Imaging studies reviewed. (See chart for details) This is a 88-year-old male patient presenting to the ED today with complaints of posterior head and neck pain status post falling. CT of the head, cervical spine with no acute findings, patient noted to have a previous C2 fracture that is healing well. Patient was discharged to home. Follow-up with PCP in the course of next week. OTC pain relievers recommended. Dragon Disclaimer Dragon Disclaimer This electronic medical record was generated, in whole or in part, using a voice recognition dictation system. Departure Departure Impression: Primary Impression: Fall from standing Additional Impressions: Acute cervical sprain Head contusion Disposition: HOME, SELF-CARE Condition: STABLE Referrals: CHARLY VILLARREAL MD (PCP) Follow-up in the course of next week Patient Instructions: Contusion, Fall Prevention and Home Safety Additional Instructions: You were evaluated in the emergency room after falling. Your CT of the head, cervical spine were negative for any acute findings. Try to ice the affected area. You can take Tylenol as needed for pain. Follow-up with your doctor in 1- 2 weeks. Problem Qualifiers Primary Impression: Fall from standing Encounter type: initial encounter Qualified Codes: W19.XXXA - Unspecified fall, initial encounter Additional Impressions: Acute cervical sprain Encounter type: initial encounter Qualified Codes: S13.9XXA - Sprain of joints and ligaments of unspecified parts of neck, initial encounter Head contusion Encounter type: initial encounter Contusion of head detail: scalp Qualified Codes: S00.03XA - Contusion of scalp, initial encounter PHILLY LAIRD APRN Jan 20, 2019 13:24
[2019-01-20 13:40] VITALS: BP 160/70
== END 2019-01-20 13:45 | disposition home or self-care (01) ==
LOC: ER 11:52
DX: S13.9XXA Sprain of joints and ligaments of unspecified parts of neck, initial encounter (principal); S00.03XA Contusion of scalp, initial encounter; R51 Headache; E78.00 Pure hypercholesterolemia, unspecified; E11.9 Type 2 diabetes mellitus without complications; I10 Essential (primary) hypertension; Z88.1 Allergy status to other antibiotic agents; Z88.2 Allergy status to sulfonamides; Z88.8 Allergy status to other drugs, medicaments and biological substances; W01.198A Fall on same level from slipping, tripping and stumbling with subsequent striking against other object, initial encounter; Y93.E8 Activity, other personal hygiene; Y92.091 Bathroom in other non-institutional residence as the place of occurrence of the external cause; Y99.8 Other external cause status
CPT/HCPCS: 70450; 72125; 99284-25